=== PATIENT | male | born 1960 | race Caucasian/White ===

== ENCOUNTER 2023-04-21 20:10 | Inpatient (IN) ==
--- NOTE | 2023-04-21 20:38 | EKG ---
Test Reason : Shortness of Breath Blood Pressure : */* mmHG Vent. Rate : 105 BPM Atrial Rate : 105 BPM P-R Int : 140 ms QRS Dur : 90 ms QT Int : 312 ms P-R-T Axes : 80 -23 67 degrees QTc Int : 412 ms Sinus tachycardia Otherwise normal ECG No previous ECGs available Confirmed by Elpidio Zeng ([id number]) on 04/23/2023 7:48:55 AM Referred By: Confirmed By: Elpidio Zeng
[2023-04-21 20:47] LABS: ABG ALLEN TEST POS; ABG BASE EXCESS 2.4 mmol/L (-2.0-2.0); ABG HCO3 26.4 mmol/L (22-26)
[2023-04-21 20:47] LABS: BASOPHILS # (AUTO) 0.1 X10^3/uL (0.0-0.1); BASOPHILS % (AUTO) 0.6 % (0.2-1.0); EOSINOPHILS % (AUTO) 0.2 % (0.9-2.9); HEMATOCRIT 48.6 % (42.0-54.0); HEMOGLOBIN 16.4 g/dL (13.5-18.0); LYMPHOCYTES # (AUTO) 1.7 X10^3/uL (1.3-2.9); LYMPHOCYTES % (AUTO) 16.1 % (21.0-51.0); MEAN CORPUSCULAR HEMOGLOBIN 32.1 pg (27.0-34.0); MEAN CORPUSCULAR HGB CONC 33.8 g/dL (33.0-35.0); MEAN PLATELET VOLUME 7.7 fL (7.4-11.0); MONOCYTES # (AUTO) 1.6 x10^3/uL (0.3-0.8); MONOCYTES % (AUTO) 14.7 % (0.0-13.0); NEUTROPHILS # (AUTO) 7.4 x10^3/uL (2.2-4.8); NEUTROPHILS % (AUTO) 68.4 % (42.0-75.0); PLATELET COUNT 201 X10^3/uL (150.0-450.0); RED BLOOD COUNT 5.11 X10^6/uL (4.7-6.0); WHITE BLOOD COUNT 10.8 X10^3/uL (3.6-10.0)
--- NOTE | 2023-04-21 20:58 | RAD ---
EXAM:CHEST, 1 VIEWHISTORY:Patient stated that he has been sick since 04/16/23, Patient stated that he started having increased Shortness of breath and chest pain that started this morning. ; Shortness of BreathCOMPARISON:None.TECHNIQUE:A single frontal view of the chest was obtained.FINDINGS:There are multiple EKG leads and wires seen overlying the patient. The heart is normal in size. There is no focal infiltrate. There is no effusion. There is no pneumothorax. The osseous structures are intact.IMPRESSION:No focal infiltrate or effusion.THIS IS AN ELECTRONICALLY VERIFIED FINAL [id number]/21/2023 8:55 PM - Electronically signed by Susan Kim MD
[2023-04-21 21:01] LABS: ALANINE AMINOTRANSFERASE 28 Units/L (12-78); ALBUMIN 3.9 g/dL (3.4-5.0); ALKALINE PHOSPHATASE 65 Units/L (46-116); ASPARTATE AMINO TRANSFERASE 23 Units/L (15-37); BLOOD UREA NITROGEN 27 mg/dL (7-18); CALCIUM 8.4 mg/dL (8.5-10.1); CARBON DIOXIDE 29.4 mmol/L (21-32); CHLORIDE 98 mmol/L (98-107); COR NA(FOR HYPERGLY) 136 mmol/L (136-145); CREATININE 1.23 mg/dL (0.70-1.30); GLUCOSE 117 mg/dL (65-99); SODIUM 136 mmol/L (136-145); TOTAL PROTEIN 7.9 g/dL (6.4-8.2); eGFR NON BLACK RACES > 60 (>60)
[2023-04-21] MEDS ORDERED: SOLU-Medrol 125 MG VIAL IVP ONE (21:27)
[2023-04-21] MEDS ORDERED: DUONEB 0.5 MG/3 MG (3 mL) NEB ONE ×2 (21:28→21:30)
--- NOTE | 2023-04-21 21:36 | DR.SOBA ---
HPI Time Seen Time Seen by Provider: 04/21/23 21:27 Primary Care Physician Primary Care Physician: Elizabeth Godwin HPI Comment HPI Comment: According to pt he was exposed to RSV last week .He began experiencing shortenss of breath increased cough and shortness of breath that has slowly worsend.pt also experienced chest pain which he thinks could be due to cough.EMS called .was started on oxygen and brought him to Er for evaluation Complaints Chief Complaint Doctors Comments: shortness of breath Chief Complaint:: Patient arrived via [facility]. Patient stated that he has been sick since 04/16/23, Patient stated that he started having increased Shortness of breath and chest pain that started this morning. COVID-19 Coronavirus risk:travel/contact w/high risk person: No Has patient experienced Coronavirus symptoms: No Coronavirus symptoms experienced: Coughing and Shortness of Breath Reviewed Nurses Notes Reviewed: Yes Source History Provided: Patient and EMS Mode of Arrival Mode of Arrival: EMS Timing Onset of Chief Complaint: 04/21/23 Duration Duration: Days Context Onset:: With Light Exertion PE Risk Factors:: None History of:: COPD Currently on:: Inhaled Bronchodilators Prehospital Care:: O2 Modifying Factors Worsens:: Exertion Improves:: Nothing Associated Signs and Symptoms Associated Signs and Symptoms: Cough, Nasal Congestion and Chest Pain If Chest Pain Quality: Sharp Location: Chest Wall If Cough Cough: Nonproductive Other History Other History: has been exposed to RSV PMH PMH Past Medical History: Yes Past Medical History: COPD and Hypertension Past Medical History Comment: Emphysema Past Surgical History: Yes Surgical History: Appendectomy Family History History of Family Medical Conditions: Yes Family Medical History: [place] and Coronary Artery Disease Social History Does patient currently use any type of tobacco product: Yes Have you used tobacco products in the last 12 months: Yes Type of Tobacco Use: Cigarettes Does any household member use tobacco: No Alcohol Use: None Do you use any recreational Drugs:: No Lives With: Alone Lives Where: Home Travel Risk Coronavirus risk:travel/contact w/high risk person: No Has patient experienced Coronavirus symptoms: No Coronavirus symptoms experienced: Coughing and Shortness of Breath Infectious screening In the last 2 months have you had wt loss of >10#?: NO Have you had fever, night sweats or hemotysis?: No Have you traveled outside the country in the last 6 months?: No Isolation: Standard ROS Review of Systems Constitutional: Chills, Malaise and Fatigue Eyes: No Symptoms Reported ENTM: No Symptoms Reported Respiratoy: Non-Productive Cough and Short of Breath Cardiovascular: Chest Pain Gastrointestinal/Abdominal: No Symptoms Reported Genitourinary: No Symptoms Reported Neurological: No Symptoms Reported Musculoskeletal: No Symptoms Reported Integumentary: No Symptoms Reported Hematologic/Lymphatic: No Symptoms Reported PE Vital Signs Vitals: Vital Signs Temperature 98.3 F Pulse Rate 96 Pulse Rate 108 Respiratory Rate 25 Blood Pressure 138/83 O2 Sat by Pulse Oximetry 96 O2 Sat by Pulse Oximetry 99 General Limitations: No Limitations General Appearance: Alert, Anxious and In Distress Head Head Exam: Normal Inspection and Atraumatic Eyes Eye exam: Normal Appearance, PERRL and EOMI ENT ENT Exam: Normal Oropharynx and Mucous Membranes Moist Neck Neck Exam: Normal Inspection and Full ROM Chest Chest Inspection: Normal Inspection and Symmetric Chest Wall Rise Respiratory Respiratory Exam: Prolonged Expiratory Phase Respiratory Exam: Bilateral: Wheezing Cardiovascular Cardiovascular Exam: Tachycardia, +S1 and +S2 Abdominal Exam Abdominal Exam: Normal Inspection, Normal Bowel Sounds and Soft Extremities Extremities Exam: Normal Inspection Neurologic Neurological Exam: Alert Skin Skin Exam: Normal Color MDM Differential Diagnosis Differential Diagnosis: COPD, Mycardial Infarction, Pneumonia and URI COURSE Treatment Treatment: labs,CXR ,oxygen ,duoneb ,solumerol.resp panel Reevaluation 1st: Unchanged ROR Labs Reviewed Laboratory Results Reviewed?: Yes 04/21/23 20:30 04/21/23 20:30 Laboratory: WBC 10.8 X10^3/uL (3.6-10.0) H 04/21/23 20:30 RBC 5.11 X10^6/uL (4.7-6.0) 04/21/23 20:30 Hgb 16.4 g/dL (13.5-18.0) 04/21/23 20:30 Hct 48.6 % (42.0-54.0) 04/21/23 20:30 MCV 95.0 fL (80.0-100.0) 04/21/23 20:30 MCH 32.1 pg (27.0-34.0) 04/21/23 20:30 MCHC 33.8 g/dL (33.0-35.0) 04/21/23 20:30 RDW 13.0 % (11.6-16.5) 04/21/23 20:30 Plt Count 201 X10^3/uL (150.0-450.0) 04/21/23 20:30 MPV 7.7 fL (7.4-11.0) 04/21/23 20:30 Neut % (Auto) 68.4 % (42.0-75.0) 04/21/23 20:30 Lymph % (Auto) 16.1 % (21.0-51.0) L 04/21/23 20:30 [place] % (Auto) 14.7 % (0.0-13.0) H 04/21/23 20:30 Eos % (Auto) 0.2 % (0.9-2.9) L 04/21/23 20:30 Baso % (Auto) 0.6 % (0.2-1.0) 04/21/23 20:30 Neut # (Auto) 7.4 x10^3/uL (2.2-4.8) H 04/21/23 20:30 Lymph # (Auto) 1.7 X10^3/uL (1.3-2.9) 04/21/23 20:30 [place] # (Auto) 1.6 x10^3/uL (0.3-0.8) H 04/21/23 20:30 Eos # (Auto) 0.0 x10^3/uL (0.0-0.2) 04/21/23 20:30 Baso # (Auto) 0.1 X10^3/uL (0.0-0.1) 04/21/23 20:30 Absolute Nucleated RBC 0.1 /100WBC 04/21/23 20:30 Sample Site Rr 04/21/23 20:42 ABG pH 7.450 (7.35-7.45) 04/21/23 20:42 ABG pCO2 38.0 mmHg (35.0-45.0) 04/21/23 20:42 ABG pO2 63.0 mmHg (80.0-100.0) L 04/21/23 20:42 ABG HCO3 26.4 mmol/L (22-26) H 04/21/23 20:42 ABG O2 Saturation 93.0 % (90-100) 04/21/23 20:42 ABG Base Excess 2.4 mmol/L (-2.0-2.0) H 04/21/23 20:42 [place] Test Pos 04/21/23 20:42 A-a Gradient 39.0 mmHg 04/21/23 20:42 FiO2 21.0 04/21/23 20:42 Blood Gas Comments Jairon well ae 04/21/23 20:42 Sodium 136 mmol/L (136-145) 04/21/23 20:30 Corrected Sodium 136 mmol/L (136-145) 04/21/23 20:30 Potassium 4.0 mmol/L (3.5-5.1) 04/21/23 20:30 Chloride 98 mmol/L (98-107) 04/21/23 20:30 Carbon Dioxide 29.4 mmol/L (21-32) 04/21/23 20:30 BUN 27 mg/dL (7-18) H 04/21/23 20:30 Creatinine 1.23 mg/dL (0.70-1.30) 04/21/23 20:30 Est GFR (MDRD) Af Amer > 60 (>60) 04/21/23 20:30 Est GFR (MDRD) Non-Af > 60 (>60) 04/21/23 20:30 Glucose 117 mg/dL (65-99) H 04/21/23 20:30 Calcium 8.4 mg/dL (8.5-10.1) L 04/21/23 20:30 Corrected Calcium TNP 04/21/23 20:30 Total Bilirubin 0.50 mg/dL (0.2-1.0) 04/21/23 20:30 AST 23 Units/L (15-37) 04/21/23 20:30 ALT 28 Units/L (12-78) 04/21/23 20:30 Alkaline Phosphatase 65 Units/L (46-116) 04/21/23 20:30 Creatine Kinase 282 Units/L (39-308) 04/21/23 20:30 Troponin I High Sens 4.8 ng/L (4.0-60.0) 04/21/23 20:30 B-Natriuretic Peptide 7.6 pg/mL (0-79) 04/21/23 20:30 Total Protein 7.9 g/dL (6.4-8.2) 04/21/23 20:30 Albumin 3.9 g/dL (3.4-5.0) 04/21/23 20:30 Globulin 4.0 g/dL (2.5-4.5) 04/21/23 20:30 Albumin/Globulin Ratio 1.0 Ratio (1.1-2.1) L 04/21/23 20:30 SARS-CoV-2 (PCR) Negative (NEGATIVE) 04/21/23 20:20 Influenza Type A (PCR) Negative (NEGATIVE) 04/21/23 20:20 Influenza Type B (PCR) Negative (NEGATIVE) 04/21/23 20:20 RSV (PCR) Positive (NEGATIVE) A 04/21/23 20:20 Opioid Opioid Risk Tool Age (Karson box if 16-45): No History of Preadolescent Sexual Abuse: No Total: 0 Total Score Risk Category: Low Risk Copyright: Zander QUINTANILLA predicting aberrant behaviors Discharge Plan Diagnosis Discharge Problem: RSV (respiratory syncytial virus infection), Acute exacerbation of chronic obstructive pulmonary disease, Dyspnea Discharge Plan Patient Disposition: 09 ADMITTED INPATIENT Condition: Stable Prescriptions: No Action Albuterol Sulfate [Proair Hfa] 108 MCG/ACT Aer 1 Inhalation NEEDED atorvastatin 40 mg tablet 40 mg PO QDAY benazepril 5 mg tablet 5 mg PO QDAY tizanidine 4 mg tablet 4 mg PO BID meloxicam 15 mg tablet 15 mg PO QDAY clopidogrel 75 mg tablet 75 mg PO QDAY alprazolam 0.5 mg tablet 0.5 mg PO BID PRN dicyclomine 20 mg tablet 20 mg PO QID temazepam 30 mg capsule 30 mg PO QPM PRN omeprazole 20 mg capsule,delayed release(DR/EC) 20 mg PO BID acetaminophen-codeine 300-60 mg tablet 1 tab PO QID PRN azithromycin 500 mg tablet 500 mg PO QDAY Health Concerns: Post Hospitalization: new medications and changes needed to prevent readmission or further decline. Pt educated and given instructions on all concerns. Plan of Treatment: Continue with present treatment and follow up plan. Pt is to keep follow up appointment as instructed and take medications as ordered. Orders to Discharge Patient Discharge Orders: Transfer (Routine); Ordered 04/21/23 Ordered By: Sarath Mark Follow ups/Referrals Follow ups/Referrals: SINGH GODWIN [Primary Care Provider] - 3 days
[2023-04-21] MEDS ORDERED: SOLU-Medrol 125 MG VIAL ONE (21:46)
[2023-04-22] MEDS ORDERED: DUONEB 0.5 MG/3 MG (3 mL) NEB SCH ×2 (06:00→09:00)
[2023-04-22] MEDS ORDERED: PULMICORT NEB TX 0.5 MG NEB SCH (09:00)
[2023-04-22] MEDS ORDERED: BENAZEPRIL 5 MG PO SCH (09:00)
[2023-04-22] MEDS: SOLU-Medrol 40 MG VIAL IVP SCH ×2 (09:13→20:15)
[2023-04-22] MEDS: PLAVIX PO SCH (09:13)
[2023-04-22] MEDS: LOTENSIN TAB 10 MG PO SCH (09:13)
[2023-04-22] MEDS: ROBITUSSIN DM PO PRN (09:13)
[2023-04-22] MEDS: LIPITOR TAB 40 MG PO SCH (09:14)
[2023-04-22] MEDS: DUONEB 0.5 MG/3 MG (3 mL) NEB SCH ×4 (09:21→20:50)
[2023-04-22] MEDS: PULMICORT NEB TX 0.5 MG NEB SCH ×2 (09:21→20:51)
[2023-04-22] MEDS: ROCEPHIN VIAL 1 GRAM 1 G in NS 100 ML IV 100 ML IV SCH (10:00)
[2023-04-22] MEDS: MOBIC TAB 15 MG PO SCH (10:02)
[2023-04-22] MEDS: XANAX PO PRN ×2 (10:02→20:14)
[2023-04-22] MEDS: PriLOSEC PO SCH ×2 (10:02→20:15)
[2023-04-22] MEDS: ZANAFLEX PO SCH ×2 (10:03→20:15)
[2023-04-22] MEDS: TUSSIONEX PENNKINETIC SUSP PO SCH ×2 (10:03→21:22)
[2023-04-22] MEDS: TYLENOL #3 TAB (W/CODEINE) PO PRN (10:07)
[2023-04-22] MEDS: BENTYL CAP 10 MG PO SCH ×3 (13:19→20:14)
--- NOTE | 2023-04-22 16:56 | DR.H&P ---
H&P History & Physical for Day of: H&P Date: 04/22/23 Chief Complaint Chief Complaint: Shortness of breath Allergies Allergies Allergy/AdvReac Type Severity Reaction Status Date / Time No Known Allergies Allergy Verified 04/21/23 20:33 History of Present Illness History of Present Illness: This is a pleasant 62-year-old white male well-known to me. The patient kept falling last night because he kept getting very short of breath and giving out completely. He fell 3 times last night because it gave completely out. Because of this, he called EMS, and they came to pick him up and brought him to the hospital. He tested positive for RSV, and subsequently, they admitted him to the hospital. He was hypoxic, and once they put him on oxygen his O2 sat came up in the upper 90s. He had been around family members who had been sick with RSV and he has been sick for the last couple of days according to what he said. His symptoms came on very fast and rapidly pr ogressed over the last 48 hours. Past Medical History Past Medical History: COPD and Hypertension Past Surgical History Surgical History: Appendectomy Family History Family Medical History: Diabetes Mellitus, Cancer and [place] Social History Does patient currently use any type of tobacco product: Yes Have you used tobacco products in the last 12 months: Yes Type of Tobacco Use: Cigarettes Does any household member use tobacco: No Alcohol Use: None Drug Use: None Medications Home Medications: Home Medications Medication Instructions Recorded Confirmed Type acetaminophen 300 mg-codeine 60 mg 1 tab PO QID PRN 04/21/23 04/21/23 History tablet alprazolam 0.5 mg tablet 0.5 mg PO BID PRN 04/21/23 04/21/23 History atorvastatin 40 mg tablet 40 mg PO QDAY 04/21/23 04/21/23 History azithromycin 500 mg tablet 500 mg PO QDAY 04/21/23 04/21/23 History benazepril 5 mg tablet 5 mg PO QDAY 04/21/23 04/21/23 History clopidogrel 75 mg tablet 75 mg PO QDAY 04/21/23 04/21/23 History dicyclomine 20 mg tablet 20 mg PO QID 04/21/23 04/21/23 History meloxicam 15 mg tablet 15 mg PO QDAY 04/21/23 04/21/23 History omeprazole 20 mg capsule,delayed 20 mg PO BID 04/21/23 04/21/23 History release temazepam 30 mg capsule 30 mg PO QPM PRN 04/21/23 04/21/23 History tizanidine 4 mg tablet 4 mg PO BID 04/21/23 04/21/23 History Labs 04/21/23 20:30 04/21/23 20:30 Labs: Laboratory WBC 10.8 X10^3/uL (3.6-10.0) H 04/21/23 20:30 RBC 5.11 X10^6/uL (4.7-6.0) 04/21/23 20:30 Hgb 16.4 g/dL (13.5-18.0) 04/21/23 20:30 Hct 48.6 % (42.0-54.0) 04/21/23 20:30 MCV 95.0 fL (80.0-100.0) 04/21/23 20:30 MCH 32.1 pg (27.0-34.0) 04/21/23 20: MCHC 33.8 g/dL (33.0-35.0) 04/21/23 20:30 RDW 13.0 % (11.6-16.5) 04/21/23 20:30 Plt Count 201 X10^3/uL (150.0-450.0) 04/21/23 20:30 MPV 7.7 fL (7.4-11.0) 04/21/23 20:30 Neut % (Auto) 68.4 % (42.0-75.0) 04/21/23 20: Lymph % (Auto) 16.1 % (21.0-51.0) L 04/21/23 20:30 [place] % (Auto) 14.7 % (0.0-13.0) H 04/21/23 20:30 Eos % (Auto) 0.2 % (0.9-2.9) L 04/21/23 20:30 Baso % (Auto) 0.6 % (0.2-1.0) 04/21/23 20:30 Neut # (Auto) 7.4 x10^3/uL (2.2-4.8) H 04/21/23 20:30 Lymph # (Auto) 1.7 X10^3/uL (1.3-2.9) 04/21/23 20:30 [place] # (Auto) 1.6 x10^3/uL (0.3-0.8) H 04/21/23 20:30 Eos # (Auto) 0.0 x10^3/uL (0.0-0.2) 04/21/23 20:30 Baso # (Auto) 0.1 X10^3/uL (0.0-0.1) 04/21/23 20:30 Absolute Nucleated RBC 0.1 /100WBC 04/21/23 20:30 Sample Site Rr 04/21/23 20:42 ABG pH 7.450 (7.35-7.45) 04/21/23 20:42 ABG pCO2 38.0 mmHg (35.0-45.0) 04/21/23 20:42 ABG pO2 63.0 mmHg (80.0-100.0) L 04/21/23 20:42 ABG HCO3 26.4 mmol/L (22-26) H 04/21/23 20:42 ABG O2 Saturation 93.0 % (90-100) 04/21/23 20:42 ABG Base Excess 2.4 mmol/L (-2.0-2.0) H 04/21/23 20:42 Ky Test Pos 04/21/23 20:42 A-a Gradient 39.0 mmHg 04/21/23 20:42 FiO2 21.0 04/21/23 20:42 Blood Gas Comments Jairon well ae 04/21/23 20:42 Sodium 136 mmol/L (136-145) 04/21/23 20:30 Corrected Sodium 136 mmol/L (136-145) 04/21/23 20:30 Potassium 4.0 mmol/L (3.5-5.1) 04/21/23 20:30 Chloride 98 mmol/L (98-107) 04/21/23 20:30 Carbon Dioxide 29.4 mmol/L (21-32) 04/21/23 20:30 BUN 27 mg/dL (7-18) H 04/21/23 20:30 Creatinine 1.23 mg/dL (0.70-1.30) 04/21/23 20:30 Est GFR (MDRD) Af Amer > 60 (>60) 04/21/23 20:30 Est GFR (MDRD) Non-Af > 60 (>60) 04/21/23 20:30 Glucose 117 mg/dL (65-99) H 04/21/23 20:30 Calcium 8.4 mg/dL (8.5-10.1) L 04/21/23 20:30 Corrected Calcium TNP 04/21/23 20:30 Total Bilirubin 0.50 mg/dL (0.2-1.0) 04/21/23 20:30 AST 23 Units/L (15-37) 04/21/23 20:30 ALT 28 Units/L (12-78) 04/21/23 20:30 Alkaline Phosphatase 65 Units/L (46-116) 04/21/23 20:30 Creatine Kinase 282 Units/L (39-308) 04/21/23 20:30 Troponin I High Sens 4.8 ng/L (4.0-60.0) 04/21/23 20:30 B-Natriuretic Peptide 7.6 pg/mL (0-79) 04/21/23 20:30 Total Protein 7.9 g/dL (6.4-8.2) 04/21/23 20:30 Albumin 3.9 g/dL (3.4-5.0) 04/21/23 20:30 Globulin 4.0 g/dL (2.5-4.5) 04/21/23 20:30 Albumin/Globulin Ratio 1.0 Ratio (1.1-2.1) L 04/21/23 20:30 SARS-CoV-2 (PCR) Negative (NEGATIVE) 04/21/23 20:20 Influenza Type A (PCR) Negative (NEGATIVE) 04/21/23 20:20 Influenza Type B (PCR) Negative (NEGATIVE) 04/21/23 20:20 RSV (PCR) Positive (NEGATIVE) A 04/21/23 20:20 Review of Systems Constitutional: Chills, Sweats, Weakness and Malaise Eyes: No Symptoms Reported ENT: Nose Discharge Respiratory: Cough, Shortness of Breath and Sputum Cardiovascular: No Symptoms Reported Gastrointestinal: No Symptoms Reported Genitourinary: No Symptoms Reported Musculoskeletal: Back Pain Skin: No Symptoms Reported Neurological: Weakness Physical Exam Vital Signs: Vital Signs Temperature 97.6 F Temperature 97.9 F Pulse Rate [Left Radial] 77 Pulse Rate [Left Radial] 90 Pulse Rate 75 Respiratory Rate 20 Respiratory Rate 18 Respiratory Rate 22 Respiratory Rate 22 Blood Pressure [Left Arm] 129/59 Blood Pressure [Left Arm] 137/75 O2 Sat by Pulse Oximetry 95 O2 Sat by Pulse Oximetry 96 O2 Sat by Pulse Oximetry 95 Oriented: Normal, Time, Person and Place Eyes: Normal Ear: Normal Nose: Injected and Discharge Throat: Normal Respiratory: Diminished Throughout and Rhonchi Throughout Cardiovascular: Normal : Normal Auscultation: Bowel Sounds: Normal Palpation: Normal Tenderness: Normal Skin: Normal Musculoskeletal: Normal Psychiatric: Normal Mood Description: Labile Affect: Normal Speech Pattern: Clear and Appropriate Assessment/Plan (1) COPD (chronic obstructive pulmonary disease): Qualifiers: COPD type: unspecified COPD Qualified Code(s): J44.9 - Chronic obstructive pulmonary disease, unspecified Status: Acute Plan: DuoNebs, IV Solu-Medrol, Rocephin (2) Bronchitis: Status: Acute (3) Chest pain: Qualifiers: Chest pain type: unspecified Qualified Code(s): R07.9 - Chest pain, unspecified Status: Acute (4) RSV (respiratory syncytial virus infection): Status: Acute Plan: Obvious Solu-Medrol, DuoNebs (5) Acute exacerbation of chronic obstructive pulmonary disease: Status: Acute (6) Dyspnea: Status: Acute (7) Hypertension: Status: Acute Review H&P Reviewed: Yes Patient was examined?: Yes
--- NOTE | 2023-04-23 05:09 | RAD ---
HISTORYrsv infection, copd exacerbation copdSTUDYCHEST, 1 [id number]/11/2023FINDINGSThe trachea is midline. The cardiac silhouette is unremarkable. The lungs are clear without focal infiltrate or effusion. The bony thorax is unremarkable.IMPRESSIONNo acute cardiopulmonary findings .Electronically signed by: Galen Andrade (Apr 23, 2023 05:05:23)
[2023-04-23 06:06] LABS: BASOPHILS % (AUTO) 0.1 % (0.2-1.0); HEMATOCRIT 44.9 % (42.0-54.0); HEMOGLOBIN 15.1 g/dL (13.5-18.0); LYMPHOCYTES # (AUTO) 1.4 X10^3/uL (1.3-2.9); LYMPHOCYTES % (AUTO) 7.7 % (21.0-51.0); MEAN CORPUSCULAR HEMOGLOBIN 32.1 pg (27.0-34.0); MEAN CORPUSCULAR HGB CONC 33.6 g/dL (33.0-35.0); MEAN CORPUSCULAR VOLUME 95.5 fL (80.0-100.0); MONOCYTES # (AUTO) 0.8 x10^3/uL (0.3-0.8); MONOCYTES % (AUTO) 4.1 % (0.0-13.0); NEUTROPHILS # (AUTO) 16.3 x10^3/uL (2.2-4.8); NEUTROPHILS % (AUTO) 88.1 % (42.0-75.0); PLATELET COUNT 188 X10^3/uL (150.0-450.0); RED CELL DISTRIBUTION WIDTH 12.9 % (11.6-16.5); WHITE BLOOD COUNT 18.6 X10^3/uL (3.6-10.0)
[2023-04-23 06:09] LABS: ALANINE AMINOTRANSFERASE 24 Units/L (12-78); ALBUMIN 3.3 g/dL (3.4-5.0); ALKALINE PHOSPHATASE 56 Units/L (46-116); ASPARTATE AMINO TRANSFERASE 18 Units/L (15-37); BLOOD UREA NITROGEN 26 mg/dL (7-18); CALCIUM 8.4 mg/dL (8.5-10.1); CARBON DIOXIDE 26.7 mmol/L (21-32); CHLORIDE 99 mmol/L (98-107); COR NA(FOR HYPERGLY) 137 mmol/L (136-145); CREATININE 1.11 mg/dL (0.70-1.30); GLUCOSE 192 mg/dL (65-99); MAGNESIUM 2.1 mg/dL (2.0-2.9); POTASSIUM 4.1 mmol/L (3.5-5.1); SODIUM 135 mmol/L (136-145); TOTAL PROTEIN 7.1 g/dL (6.4-8.2); eGFR NON BLACK RACES > 60 (>60)
[2023-04-23] MEDS: PULMICORT NEB TX 0.5 MG NEB SCH ×2 (09:16→21:00)
[2023-04-23] MEDS: DUONEB 0.5 MG/3 MG (3 mL) NEB SCH ×4 (09:16→21:00)
[2023-04-23] MEDS: TUSSIONEX PENNKINETIC SUSP PO SCH ×2 (09:53→21:05)
[2023-04-23] MEDS: SOLU-Medrol 40 MG VIAL IVP SCH ×2 (09:53→20:31)
[2023-04-23] MEDS: ZANAFLEX PO SCH ×2 (09:53→20:31)
[2023-04-23] MEDS: ROCEPHIN VIAL 1 GRAM 1 G in NS 100 ML IV 100 ML IV SCH (09:53)
[2023-04-23] MEDS: PriLOSEC PO SCH ×2 (09:54→20:30)
[2023-04-23] MEDS: PLAVIX PO SCH (09:54)
[2023-04-23] MEDS: BENTYL CAP 10 MG PO SCH ×4 (09:54→20:31)
[2023-04-23] MEDS: MOBIC TAB 15 MG PO SCH (09:54)
[2023-04-23] MEDS: LOTENSIN TAB 10 MG PO SCH (09:54)
[2023-04-23] MEDS: LIPITOR TAB 40 MG PO SCH (10:53)
[2023-04-23] MEDS ORDERED: ZITHROMAX INJ 500 MG VIAL 500 MG in NS 250 ML IV 250 ML IV SCH (12:00)
[2023-04-23] MEDS: FLONASE NASAL SPRAY ENOSTRIL SCH (13:11)
--- NOTE | 2023-04-23 18:07 | PCM.PROG ---
Progress Note Progress Note for Day of Date of Exam: 04/23/23 Subjective Subjective: The patient is feeling a little bit better this morning. He reports having less dyspnea. His white blood cell count spiked up to 18,000. I suspect part of this is the IV Solu-Medrol he is receiving. I will go ahead and add azithromycin 500 mg daily to the Rocephin he is receiving as well. We will continue the current treatment and recheck his routine labs tomorrow morning and if he is doing well we may go ahead and discharge him. Past Medical Family Social History Allergies: Allergies No Known Allergies Allergy (Verified 04/21/23 20:33) Review of Systems ROS: No change since H&P Vital Signs and I&O's Vital Signs: Vital Signs Temperature 97.2 F Temperature 98.2 F Pulse Rate [Left Radial] 82 Pulse Rate [Left Radial] 76 Respiratory Rate 20 Respiratory Rate 20 Blood Pressure [Left Arm] 136/72 Blood Pressure [Left Arm] 146/64 Blood Pressure [Right Arm] 126/58 Blood Pressure [Right Arm] 126/58 O2 Sat by Pulse Oximetry 95 O2 Sat by Pulse Oximetry 96 Intake and Output: Intake & Output 04/21/23 04/22/23 04/23/23 04/24/23 11:59 11:59 11:59 11:59 Intake Total 40 / 40 1700 / 1700 960 / 960 Balance 40 / 40 1700 / 1700 960 / 960 Physical Exam Oriented: Normal, Time, Person and Place Eyes: Normal Ear: Normal Nose: Injected and Discharge Throat: Normal Respiratory: Generalized and Diminished Cardiovascular: Normal : Normal Auscultation: Bowel Sounds: Normal Tenderness: Normal Skin: Normal Musculoskeletal: Normal Psychiatric: Normal Mood Description: Labile Affect: Normal Speech Pattern: Clear and Appropriate Laboratory and Diagnostics 04/23/23 05:13 04/23/23 05:13 Labs: Laboratory WBC 18.6 X10^3/uL (3.6-10.0) H 04/23/23 05:13 RBC 4.70 X10^6/uL (4.7-6.0) 04/23/23 05:13 Hgb 15.1 g/dL (13.5-18.0) 04/23/23 05:13 Hct 44.9 % (42.0-54.0) 04/23/23 05:13 MCV 95.5 fL (80.0-100.0) 04/23/23 05:13 MCH 32.1 pg (27.0-34.0) 04/23/23 05:13 MCHC 33.6 g/dL (33.0-35.0) 04/23/23 05:13 RDW 12.9 % (11.6-16.5) 04/23/23 05:13 Plt Count 188 X10^3/uL (150.0-450.0) 04/23/23 05:13 MPV 8.0 fL (7.4-11.0) 04/23/23 05:13 Neut % (Auto) 88.1 % (42.0-75.0) H 04/23/23 05:13 Lymph % (Auto) 7.7 % (21.0-51.0) L 04/23/23 05:13 [place] % (Auto) 4.1 % (0.0-13.0) 04/23/23 05:13 Eos % (Auto) 0.0 % (0.9-2.9) L 04/23/23 05:13 Baso % (Auto) 0.1 % (0.2-1.0) L 04/23/23 05:13 Neut # (Auto) 16.3 x10^3/uL (2.2-4.8) H 04/23/23 05:13 Lymph # (Auto) 1.4 X10^3/uL (1.3-2.9) 04/23/23 05:13 [place] # (Auto) 0.8 x10^3/uL (0.3-0.8) 04/23/23 05:13 Eos # (Auto) 0.0 x10^3/uL (0.0-0.2) 04/23/23 05:13 Baso # (Auto) 0.0 X10^3/uL (0.0-0.1) 04/23/23 05:13 Absolute Nucleated RBC 0.0 /100WBC 04/23/23 05:13 Sample Site Rr 04/21/23 20:42 ABG pH 7.450 (7.35-7.45) 04/21/23 20:42 ABG pCO2 38.0 mmHg (35.0-45.0) 04/21/23 20:42 ABG pO2 63.0 mmHg (80.0-100.0) L 04/21/23 20:42 ABG HCO3 26.4 mmol/L (22-26) H 04/21/23 20:42 ABG O2 Saturation 93.0 % (90-100) 04/21/23 20:42 ABG Base Excess 2.4 mmol/L (-2.0-2.0) H 04/21/23 20:42 [place] Test Pos 04/21/23 20:42 A-a Gradient 39.0 mmHg 04/21/23 20:42 FiO2 21.0 04/21/23 20:42 Blood Gas Comments Jairon well ae 04/21/23 20:42 Sodium 135 mmol/L (136-145) L 04/23/23 05:13 Corrected Sodium 137 mmol/L (136-145) 04/23/23 05:13 Potassium 4.1 mmol/L (3.5-5.1) 04/23/23 05:13 Chloride 99 mmol/L (98-107) 04/23/23 05:13 Carbon Dioxide 26.7 mmol/L (21-32) 04/23/23 05:13 BUN 26 mg/dL (7-18) H 04/23/23 05:13 Creatinine 1.11 mg/dL (0.70-1.30) 04/23/23 05:13 Est GFR (MDRD) Af Amer > 60 (>60) 04/23/23 05:13 Est GFR (MDRD) Non-Af > 60 (>60) 04/23/23 05:13 Glucose 192 mg/dL (65-99) H 04/23/23 05:13 Calcium 8.4 mg/dL (8.5-10.1) L 04/23/23 05:13 Corrected Calcium 9.0 mg/dL (8.5-10.1) 04/23/23 05:13 Magnesium 2.1 mg/dL (2.0-2.9) 04/23/23 05:13 Total Bilirubin 0.30 mg/dL (0.2-1.0) 04/23/23 05:13 AST 18 Units/L (15-37) 04/23/23 05:13 ALT 24 Units/L (12-78) 04/23/23 05:13 Alkaline Phosphatase 56 Units/L (46-116) 04/23/23 05:13 Creatine Kinase 282 Units/L (39-308) 04/21/23 20:30 Troponin I High Sens 4.8 ng/L (4.0-60.0) 04/21/23 20:30 B-Natriuretic Peptide 7.6 pg/mL (0-79) 04/21/23 20:30 Total Protein 7.1 g/dL (6.4-8.2) 04/23/23 05:13 Albumin 3.3 g/dL (3.4-5.0) L 04/23/23 05:13 Globulin 3.8 g/dL (2.5-4.5) 04/23/23 05:13 Albumin/Globulin Ratio 0.9 Ratio (1.1-2.1) L 04/23/23 05:13 SARS-CoV-2 (PCR) Negative (NEGATIVE) 04/21/23 20:20 Influenza Type A (PCR) Negative (NEGATIVE) 04/21/23 20:20 Influenza Type B (PCR) Negative (NEGATIVE) 04/21/23 20:20 RSV (PCR) Positive (NEGATIVE) A 04/21/23 20:20 Plan (1) COPD (chronic obstructive pulmonary disease): Status: Acute Qualifiers: COPD type: unspecified COPD Qualified Code(s): J44.9 - Chronic obstructive pulmonary disease, unspecified Plan: DuoNebs, IV Solu-Medrol, Rocephin, Add IV azithromycin. (2) Bronchitis: Status: Acute (3) Chest pain: Status: Acute Qualifiers: Chest pain type: unspecified Qualified Code(s): R07.9 - Chest pain, unspecified Narrative Support Text: I suspect the chest pain is related to his RSV infection, and the coughing he has been doing. (4) RSV (respiratory syncytial virus infection): Status: Acute Plan: Obvious Solu-Medrol, DuoNebs (5) Acute exacerbation of chronic obstructive pulmonary disease: Status: Acute (6) Dyspnea: Status: Acute (7) Hypertension: Status: Acute
[2023-04-23] MEDS: RESTORIL CAP 15 MG PO PRN (20:38)
[2023-04-23] MEDS: XANAX PO PRN (20:39)
[2023-04-24 05:57] LABS: BASOPHILS % (AUTO) 0.1 % (0.2-1.0); HEMATOCRIT 44.5 % (42.0-54.0); HEMOGLOBIN 14.9 g/dL (13.5-18.0); LYMPHOCYTES # (AUTO) 1.4 X10^3/uL (1.3-2.9); LYMPHOCYTES % (AUTO) 7.2 % (21.0-51.0); MEAN CORPUSCULAR HEMOGLOBIN 31.9 pg (27.0-34.0); MEAN CORPUSCULAR HGB CONC 33.5 g/dL (33.0-35.0); MEAN CORPUSCULAR VOLUME 95.2 fL (80.0-100.0); MEAN PLATELET VOLUME 7.6 fL (7.4-11.0); MONOCYTES # (AUTO) 0.8 x10^3/uL (0.3-0.8); NEUTROPHILS # (AUTO) 17.6 x10^3/uL (2.2-4.8); NEUTROPHILS % (AUTO) 88.7 % (42.0-75.0); PLATELET COUNT 221 X10^3/uL (150.0-450.0); RED BLOOD COUNT 4.67 X10^6/uL (4.7-6.0); RED CELL DISTRIBUTION WIDTH 13.1 % (11.6-16.5); WHITE BLOOD COUNT 19.9 X10^3/uL (3.6-10.0)
[2023-04-24 06:14] LABS: ALANINE AMINOTRANSFERASE 25 Units/L (12-78); ALBUMIN 3.2 g/dL (3.4-5.0); ALKALINE PHOSPHATASE 52 Units/L (46-116); ASPARTATE AMINO TRANSFERASE 14 Units/L (15-37); BLOOD UREA NITROGEN 27 mg/dL (7-18); CALCIUM 8.4 mg/dL (8.5-10.1); CHLORIDE 101 mmol/L (98-107); COR NA(FOR HYPERGLY) 138 mmol/L (136-145); CREATININE 1.08 mg/dL (0.70-1.30); GLUCOSE 184 mg/dL (65-99); SODIUM 136 mmol/L (136-145); eGFR NON BLACK RACES > 60 (>60)
[2023-04-24] MEDS ORDERED: ZOFRAN INJ 4 MG VIAL IVP PRN (08:27)
[2023-04-24] MEDS: DUONEB 0.5 MG/3 MG (3 mL) NEB SCH ×4 (08:59→21:00)
[2023-04-24] MEDS: PULMICORT NEB TX 0.5 MG NEB SCH ×2 (08:59→21:00)
[2023-04-24] MEDS: SOLU-Medrol 40 MG VIAL IVP SCH ×2 (09:01→20:55)
[2023-04-24] MEDS: BENTYL CAP 10 MG PO SCH ×4 (09:01→20:54)
[2023-04-24] MEDS: LIPITOR TAB 40 MG PO SCH (09:01)
[2023-04-24] MEDS: PriLOSEC PO SCH ×2 (09:01→20:54)
[2023-04-24] MEDS: ZANAFLEX PO SCH ×2 (09:02→20:54)
[2023-04-24] MEDS: MOBIC TAB 15 MG PO SCH (09:02)
[2023-04-24] MEDS: PLAVIX PO SCH (09:02)
[2023-04-24] MEDS: LOTENSIN TAB 10 MG PO SCH (09:02)
[2023-04-24] MEDS: MUCINEX EXPECTORANT PO SCH ×2 (09:03→20:54)
[2023-04-24] MEDS: ROCEPHIN VIAL 1 GRAM 1 G in NS 100 ML IV 100 ML IV SCH (09:03)
[2023-04-24] MEDS: LOVENOX INJ 40 MG SYR SC SCH (09:03)
[2023-04-24] MEDS: FLONASE NASAL SPRAY ENOSTRIL SCH (09:52)
[2023-04-24] MEDS: TUSSIONEX PENNKINETIC SUSP PO SCH ×2 (10:34→21:27)
[2023-04-24] MEDS: XANAX PO PRN ×2 (10:35→20:54)
[2023-04-24] MEDS: LEVAQUIN PREMIX IV 750 MG 750 MG/150 ML BAG IV SCH (10:42)
--- NOTE | 2023-04-24 12:35 | PCM.PROG ---
Progress Note Progress Note for Day of Date of Exam: 04/24/23 Subjective Subjective: The patient is feeling a little bit worse this morning as his dyspnea is getting worse as well. His white blood cell count has gone up some since yesterday. We will discontinue his azithromycin and Rocephin. We will start him on IV Levaquin today. His AIT respiratory panel has grown out Streptococcus pneumoniae as well as RSV. We will also add Mucinex as he is complaining about thick phlegm that he is coughing up. We will continue the DuoNebs and also consult respiratory to start working with him to see what they can do to help him breathe easier. Past Medical Family Social History Allergies: Allergies No Known Allergies Allergy (Verified 04/21/23 20:33) Review of Systems ROS: No change since H&P Vital Signs and I&O's Vital Signs: Vital Signs Temperature 97.9 F Pulse Rate [Left Radial] 66 Pulse Rate 80 Respiratory Rate 25 Respiratory Rate 22 Respiratory Rate 20 Blood Pressure [Left Arm] 129/65 O2 Sat by Pulse Oximetry 94 O2 Sat by Pulse Oximetry 95 Intake and Output: Intake & Output 04/22/23 04/23/23 04/24/23 04/25/23 11:59 11:59 11:59 11:59 Intake Total 40 / 40 1700 / 1700 1820 / 1820 Balance 40 / 40 1700 / 1700 1820 / 1820 Physical Exam Oriented: Normal, Time, Person and Place Eyes: Normal Ear: Normal Nose: Injected and Discharge Throat: Normal Respiratory: Generalized and Diminished Cardiovascular: Normal : Normal Auscultation: Bowel Sounds: Normal Tenderness: Normal Skin: Normal Musculoskeletal: Normal Psychiatric: Normal Mood Description: Labile Affect: Normal Speech Pattern: Clear and Appropriate Laboratory and Diagnostics 04/24/23 05:32 04/24/23 05:32 Labs: Laboratory WBC 19.9 X10^3/uL (3.6-10.0) H 04/24/23 05:32 RBC 4.67 X10^6/uL (4.7-6.0) L 04/24/23 05:32 Hgb 14.9 g/dL (13.5-18.0) 04/24/23 05:32 Hct 44.5 % (42.0-54.0) 04/24/23 05:32 MCV 95.2 fL (80.0-100.0) 04/24/23 05:32 MCH 31.9 pg (27.0-34.0) 04/24/23 05:32 MCHC 33.5 g/dL (33.0-35.0) 04/24/23 05:32 RDW 13.1 % (11.6-16.5) 04/24/23 05:32 Plt Count 221 X10^3/uL (150.0-450.0) 04/24/23 05:32 MPV 7.6 fL (7.4-11.0) 04/24/23 05:32 Neut % (Auto) 88.7 % (42.0-75.0) H 04/24/23 05:32 Lymph % (Auto) 7.2 % (21.0-51.0) L 04/24/23 05:32 [place] % (Auto) 4.0 % (0.0-13.0) 04/24/23 05:32 Eos % (Auto) 0.0 % (0.9-2.9) L 04/24/23 05:32 Baso % (Auto) 0.1 % (0.2-1.0) L 04/24/23 05:32 Neut # (Auto) 17.6 x10^3/uL (2.2-4.8) H 04/24/23 05:32 Lymph # (Auto) 1.4 X10^3/uL (1.3-2.9) 04/24/23 05:32 [place] # (Auto) 0.8 x10^3/uL (0.3-0.8) 04/24/23 05:32 Eos # (Auto) 0.0 x10^3/uL (0.0-0.2) 04/24/23 05:32 Baso # (Auto) 0.0 X10^3/uL (0.0-0.1) 04/24/23 05:32 Absolute Nucleated RBC 0.0 /100WBC 04/24/23 05:32 Sample Site Rr 04/21/23 20:42 ABG pH 7.450 (7.35-7.45) 04/21/23 20:42 ABG pCO2 38.0 mmHg (35.0-45.0) 04/21/23 20:42 ABG pO2 63.0 mmHg (80.0-100.0) L 04/21/23 20:42 ABG HCO3 26.4 mmol/L (22-26) H 04/21/23 20:42 ABG O2 Saturation 93.0 % (90-100) 04/21/23 20:42 ABG Base Excess 2.4 mmol/L (-2.0-2.0) H 04/21/23 20:42 Ky Test Pos 04/21/23 20:42 A-a Gradient 39.0 mmHg 04/21/23 20:42 FiO2 21.0 04/21/23 20:42 Blood Gas Comments Jairon well ae 04/21/23 20:42 Sodium 136 mmol/L (136-145) 04/24/23 05:32 Corrected Sodium 138 mmol/L (136-145) 04/24/23 05:32 Potassium 5.0 mmol/L (3.5-5.1) 04/24/23 05:32 Chloride 101 mmol/L (98-107) 04/24/23 05:32 Carbon Dioxide 28.0 mmol/L (21-32) 04/24/23 05:32 BUN 27 mg/dL (7-18) H 04/24/23 05:32 Creatinine 1.08 mg/dL (0.70-1.30) 04/24/23 05:32 Est GFR (MDRD) Af Amer > 60 (>60) 04/24/23 05:32 Est GFR (MDRD) Non-Af > 60 (>60) 04/24/23 05:32 Glucose 184 mg/dL (65-99) H 04/24/23 05:32 Calcium 8.4 mg/dL (8.5-10.1) L 04/24/23 05:32 Corrected Calcium 9.0 mg/dL (8.5-10.1) 04/24/23 05:32 Magnesium 2.1 mg/dL (2.0-2.9) 04/23/23 05:13 Total Bilirubin 0.30 mg/dL (0.2-1.0) 04/24/23 05:32 AST 14 Units/L (15-37) L 04/24/23 05:32 ALT 25 Units/L (12-78) 04/24/23 05:32 Alkaline Phosphatase 52 Units/L (46-116) 04/24/23 05:32 Creatine Kinase 282 Units/L (39-308) 04/21/23 20:30 Troponin I High Sens 4.8 ng/L (4.0-60.0) 04/21/23 20:30 B-Natriuretic Peptide 7.6 pg/mL (0-79) 04/21/23 20:30 Total Protein 7.0 g/dL (6.4-8.2) 04/24/23 05:32 Albumin 3.2 g/dL (3.4-5.0) L 04/24/23 05:32 Globulin 3.8 g/dL (2.5-4.5) 04/24/23 05:32 Albumin/Globulin Ratio 0.8 Ratio (1.1-2.1) L 04/24/23 05:32 SARS-CoV-2 (PCR) Negative (NEGATIVE) 04/21/23 20:20 Influenza Type A (PCR) Negative (NEGATIVE) 04/21/23 20:20 Influenza Type B (PCR) Negative (NEGATIVE) 04/21/23 20:20 RSV (PCR) Positive (NEGATIVE) A 04/21/23 20:20 Resp Viral Panel (PCR) See scanned report 04/21/23 23:55 Plan (1) COPD (chronic obstructive pulmonary disease): Status: Acute Qualifiers: COPD type: unspecified COPD Qualified Code(s): J44.9 - Chronic obstr uctive pulmonary disease, unspecified Plan: DuoNebs, IV Solu-Medrol, Rocephin, Add IV azithromycin. (2) Bronchitis: Status: Acute (3) Chest pain: Status: Acute Qualifiers: Chest pain type: unspecified Qualified Code(s): R07.9 - Chest pain, unspecified (4) RSV (respiratory syncytial virus infection): Status: Acute Plan: Obvious Solu-Medrol, DuoNebs (5) Acute exacerbation of chronic obstructive pulmonary disease: Status: Acute (6) Dyspnea: Status: Acute Plan: Add Mucinex. Consult respiratory therapy. (7) Hypertension: Status: Acute (8) Acute bronchitis due to Streptococcus pneumoniae: Status: Acute Plan: Discontinue IV Rocephin and azithromycin. Start IV Levaquin.
[2023-04-24] MEDS: RESTORIL CAP 15 MG PO PRN (20:53)
[2023-04-25 06:05] LABS: BASOPHILS % (AUTO) 0.1 % (0.2-1.0); HEMATOCRIT 43.8 % (42.0-54.0); HEMOGLOBIN 14.4 g/dL (13.5-18.0); LYMPHOCYTES # (AUTO) 1.3 X10^3/uL (1.3-2.9); LYMPHOCYTES % (AUTO) 9.6 % (21.0-51.0); MEAN CORPUSCULAR HEMOGLOBIN 31.7 pg (27.0-34.0); MEAN CORPUSCULAR HGB CONC 32.9 g/dL (33.0-35.0); MEAN CORPUSCULAR VOLUME 96.5 fL (80.0-100.0); MEAN PLATELET VOLUME 7.7 fL (7.4-11.0); MONOCYTES # (AUTO) 0.6 x10^3/uL (0.3-0.8); MONOCYTES % (AUTO) 4.4 % (0.0-13.0); NEUTROPHILS # (AUTO) 11.6 x10^3/uL (2.2-4.8); NEUTROPHILS % (AUTO) 85.9 % (42.0-75.0); PLATELET COUNT 216 X10^3/uL (150.0-450.0); RED BLOOD COUNT 4.54 X10^6/uL (4.7-6.0); WHITE BLOOD COUNT 13.5 X10^3/uL (3.6-10.0)
[2023-04-25 06:17] LABS: ALANINE AMINOTRANSFERASE 25 Units/L (12-78); ALKALINE PHOSPHATASE 56 Units/L (46-116); ASPARTATE AMINO TRANSFERASE 13 Units/L (15-37); BLOOD UREA NITROGEN 25 mg/dL (7-18); CALCIUM 8.2 mg/dL (8.5-10.1); CARBON DIOXIDE 31.7 mmol/L (21-32); CHLORIDE 99 mmol/L (98-107); COR NA(FOR HYPERGLY) 140 mmol/L (136-145); CREATININE 1.06 mg/dL (0.70-1.30); GLUCOSE 221 mg/dL (65-99); POTASSIUM 4.8 mmol/L (3.5-5.1); SODIUM 137 mmol/L (136-145); TOTAL PROTEIN 6.5 g/dL (6.4-8.2); eGFR NON BLACK RACES > 60 (>60)
[2023-04-25] MEDS: BENTYL CAP 10 MG PO SCH ×4 (09:30→20:29)
[2023-04-25] MEDS: SOLU-Medrol 40 MG VIAL IVP SCH ×2 (09:31→20:30)
[2023-04-25] MEDS: LOVENOX INJ 40 MG SYR SC SCH (09:31)
[2023-04-25] MEDS: LOTENSIN TAB 10 MG PO SCH (09:31)
[2023-04-25] MEDS: MOBIC TAB 15 MG PO SCH (09:32)
[2023-04-25] MEDS: ZANAFLEX PO SCH ×2 (09:32→20:30)
[2023-04-25] MEDS: PLAVIX PO SCH (09:32)
[2023-04-25] MEDS: LIPITOR TAB 40 MG PO SCH (09:33)
[2023-04-25] MEDS: PriLOSEC PO SCH ×2 (09:33→20:29)
[2023-04-25] MEDS: MUCINEX EXPECTORANT PO SCH ×2 (09:34→20:30)
[2023-04-25] MEDS: PULMICORT NEB TX 0.5 MG NEB SCH ×2 (09:44→20:05)
[2023-04-25] MEDS: DUONEB 0.5 MG/3 MG (3 mL) NEB SCH ×4 (09:44→20:05)
[2023-04-25] MEDS: LEVAQUIN PREMIX IV 750 MG 750 MG/150 ML BAG IV SCH (10:15)
[2023-04-25] MEDS: FLONASE NASAL SPRAY ENOSTRIL SCH (10:16)
[2023-04-25] MEDS: TUSSIONEX PENNKINETIC SUSP PO SCH ×2 (10:22→21:00)
[2023-04-25] MEDS: RESTORIL CAP 15 MG PO PRN (20:29)
[2023-04-25] MEDS: XANAX PO PRN (20:32)
--- NOTE | 2023-04-26 08:00 | PCM.PROG ---
Progress Note Progress Note for Day of Date of Exam: 04/25/23 Subjective Subjective: The patient is feeling better today with improved dyspnea. His white count is down to around 13,000. We will plan on keeping 1-2 more days and of looking discharging him. No changes today. Past Medical Family Social History Allergies: Allergies No Known Allergies Allergy (Verified 04/21/23 20:33) Review of Systems ROS: No change since H&P Vital Signs and I&O's Vital Signs: Vital Signs Temperature 98.2 F Pulse Rate [Left Radial] 60 Respiratory Rate 20 Blood Pressure [Left Arm] 133/65 O2 Sat by Pulse Oximetry 93 Intake and Output: Intake & Output 04/23/23 04/24/23 04/25/23 04/26/23 11:59 11:59 11:59 11:59 Intake Total 1700 / 1700 1820 / 1820 2588 / 2588 1795 / 1795 Output Total 1700 / 1700 500 / 500 Balance 1700 / 1700 1820 / 1820 888 / 888 1295 / 1295 Physical Exam Oriented: Normal, Time, Person and Place Eyes: Normal Ear: Normal Nose: Injected and Discharge Throat: Normal Respiratory: Generalized and Rhonchi Cardiovascular: Normal : Normal Auscultation: Bowel Sounds: Normal Tenderness: Normal Skin: Normal Musculoskeletal: Normal Psychiatric: Normal Mood Description: Labile Affect: Normal Speech Pattern: Clear and Appropriate Laboratory and Diagnostics 04/25/23 05:22 04/25/23 05:22 Labs: Laboratory WBC 13.5 X10^3/uL (3.6-10.0) H 04/25/23 05:22 RBC 4.54 X10^6/uL (4.7-6.0) L 04/25/23 05:22 Hgb 14.4 g/dL (13.5-18.0) 04/25/23 05:22 Hct 43.8 % (42.0-54.0) 04/25/23 05:22 MCV 96.5 fL (80.0-100.0) 04/25/23 05:22 MCH 31.7 pg (27.0-34.0) 04/25/23 05:22 MCHC 32.9 g/dL (33.0-35.0) L 04/25/23 05:22 RDW 13.0 % (11.6-16.5) 04/25/23 05:22 Plt Count 216 X10^3/uL (150.0-450.0) 04/25/23 05:22 MPV 7.7 fL (7.4-11.0) 04/25/23 05:22 Neut % (Auto) 85.9 % (42.0-75.0) H 04/25/23 05:22 Lymph % (Auto) 9.6 % (21.0-51.0) L 04/25/23 05:22 [place] % (Auto) 4.4 % (0.0-13.0) 04/25/23 05:22 Eos % (Auto) 0.0 % (0.9-2.9) L 04/25/23 05:22 Baso % (Auto) 0.1 % (0.2-1.0) L 04/25/23 05:22 Neut # (Auto) 11.6 x10^3/uL (2.2-4.8) H 04/25/23 05:22 Lymph # (Auto) 1.3 X10^3/uL (1.3-2.9) 04/25/23 05:22 [place] # (Auto) 0.6 x10^3/uL (0.3-0.8) 04/25/23 05:22 Eos # (Auto) 0.0 x10^3/uL (0.0-0.2) 04/25/23 05:22 Baso # (Auto) 0.0 X10^3/uL (0.0-0.1) 04/25/23 05:22 Absolute Nucleated RBC 0.0 /100WBC 04/25/23 05:22 Sample Site Rr 04/21/23 20:42 ABG pH 7.450 (7.35-7.45) 04/21/23 20:42 ABG pCO2 38.0 mmHg (35.0-45.0) 04/21/23 20:42 ABG pO2 63.0 mmHg (80.0-100.0) L 04/21/23 20:42 ABG HCO3 26.4 mmol/L (22-26) H 04/21/23 20:42 ABG O2 Saturation 93.0 % (90-100) 04/21/23 20:42 ABG Base Excess 2.4 mmol/L (-2.0-2.0) H 04/21/23 20:42 [place] Test Pos 04/21/23 20:42 A-a Gradient 39.0 mmHg 04/21/23 20:42 FiO2 21.0 04/21/23 20:42 Blood Gas Comments Jairon well ae 04/21/23 20:42 Sodium 137 mmol/L (136-145) 04/25/23 05:22 Corrected Sodium 140 mmol/L (136-145) 04/25/23 05:22 Potassium 4.8 mmol/L (3.5-5.1) 04/25/23 05:22 Chloride 99 mmol/L (98-107) 04/25/23 05:22 Carbon Dioxide 31.7 mmol/L (21-32) 04/25/23 05:22 BUN 25 mg/dL (7-18) H 04/25/23 05:22 Creatinine 1.06 mg/dL (0.70-1.30) 04/25/23 05:22 Est GFR (MDRD) Af Amer > 60 (>60) 04/25/23 05:22 Est GFR (MDRD) Non-Af > 60 (>60) 04/25/23 05:22 Glucose 221 mg/dL (65-99) H 04/25/23 05:22 Calcium 8.2 mg/dL (8.5-10.1) L 04/25/23 05:22 Corrected Calcium 9.0 mg/dL (8.5-10.1) 04/25/23 05:22 Magnesium 2.1 mg/dL (2.0-2.9) 04/23/23 05:13 Total Bilirubin 0.40 mg/dL (0.2-1.0) 04/25/23 05:22 AST 13 Units/L (15-37) L 04/25/23 05:22 ALT 25 Units/L (12-78) 04/25/23 05:22 Alkaline Phosphatase 56 Units/L (46-116) 04/25/23 05:22 Creatine Kinase 282 Units/L (39-308) 04/21/23 20:30 Troponin I High Sens 4.8 ng/L (4.0-60.0) 04/21/23 20:30 B-Natriuretic Peptide 7.6 pg/mL (0-79) 04/21/23 20:30 Total Protein 6.5 g/dL (6.4-8.2) 04/25/23 05:22 Albumin 3.0 g/dL (3.4-5.0) L 04/25/23 05:22 Globulin 3.5 g/dL (2.5-4.5) 04/25/23 05:22 Albumin/Globulin Ratio 0.9 Ratio (1.1-2.1) L 04/25/23 05:22 SARS-CoV-2 (PCR) Negative (NEGATIVE) 04/21/23 20:20 Influenza Type A (PCR) Negative (NEGATIVE) 04/21/23 20:20 Influenza Type B (PCR) Negative (NEGATIVE) 04/21/23 20:20 RSV (PCR) Positive (NEGATIVE) A 04/21/23 20:20 Resp Viral Panel (PCR) See scanned report 04/21/23 23:55 Plan (1) COPD (chronic obstructive pulmonary disease): Status: Acute Qualifiers: COPD type: unspecified COPD Qualified Code(s): J44.9 - Chronic obst ructive pulmonary disease, unspecified Plan: DuoNebs, IV Solu-Medrol, Rocephin, Add IV azithromycin. (2) Bronchitis: Status: Acute (3) Chest pain: Status: Acute Qualifiers: Chest pain type: unspecified Qualified Code(s): R07.9 - Chest pain, unspecified (4) RSV (respiratory syncytial virus infection): Status: Acute Plan: Obvious Solu-Medrol, DuoNebs (5) Acute exacerbation of chronic obstructive pulmonary disease: Status: Acute (6) Dyspnea: Status: Acute Plan: Add Mucinex. Consult respiratory therapy. (7) Hypertension: Status: Acute (8) Acute bronchitis due to Streptococcus pneumoniae: Status: Acute Plan: Discontinue IV Rocephin and azithromycin. Start IV Levaquin.
--- NOTE | 2023-04-26 08:03 | RAD ---
EXAM:Portable chestHISTORY:PneumoniaCOMPARISON: 023FINDINGS:Heart size is normal. Mindy are normal. Aorta is calcified. Lung villa are clear. No pleural effusions are identified. Bony thorax is unremarkable.IMPRESSION:No significant abnormality identifiedTHIS IS AN ELECTRONICALLY VERIFIED FINAL [id number]/26/2023 8:00 AM - Electronically signed by Presley Monterroso MD
[2023-04-26] MEDS: PULMICORT NEB TX 0.5 MG NEB SCH ×2 (08:34→20:55)
[2023-04-26] MEDS: DUONEB 0.5 MG/3 MG (3 mL) NEB SCH ×2 (08:34→20:55)
[2023-04-26] MEDS: LOVENOX INJ 40 MG SYR SC SCH (09:19)
[2023-04-26] MEDS: MOBIC TAB 15 MG PO SCH (09:19)
[2023-04-26] MEDS: PLAVIX PO SCH (09:20)
[2023-04-26] MEDS: LOTENSIN TAB 10 MG PO SCH (09:20)
[2023-04-26] MEDS: PriLOSEC PO SCH ×2 (09:21→22:03)
[2023-04-26] MEDS: BENTYL CAP 10 MG PO SCH ×4 (09:21→22:02)
[2023-04-26] MEDS: ZANAFLEX PO SCH ×2 (09:22→22:03)
[2023-04-26] MEDS ORDERED: BROVANA ONE (09:22)
[2023-04-26] MEDS: MUCINEX EXPECTORANT PO SCH ×2 (09:23→22:04)
[2023-04-26] MEDS: LIPITOR TAB 40 MG PO SCH (09:23)
[2023-04-26] MEDS: SOLU-Medrol 40 MG VIAL IVP SCH ×2 (09:24→22:04)
[2023-04-26] MEDS: TUSSIONEX PENNKINETIC SUSP PO SCH ×2 (09:24→22:02)
[2023-04-26] MEDS: BROVANA IN SCH ×2 (09:44→20:55)
[2023-04-26] MEDS: FLONASE NASAL SPRAY ENOSTRIL SCH (09:49)
[2023-04-26] MEDS: LEVAQUIN PREMIX IV 750 MG 750 MG/150 ML BAG IV SCH (09:50)
--- NOTE | 2023-04-26 16:23 | PCM.PROG ---
Progress Note Progress Note for Day of Date of Exam: 04/26/23 Subjective Subjective: The patient is feeling better today with improved dyspnea. He is still somewhat tired and has expiratory wheezing. I will go ahead and add inhaled budesonide with formoterol as well. We will continue the rest of his treatments today. We do not have labs on him this morning but we will draw him again tomorrow morning and a chest x-ray. Past Medical Family Social History Allergies: Allergies No Known Allergies Allergy (Verified 04/21/23 20:33) Review of Systems ROS: No change since H&P Vital Signs and I&O's Vital Signs: Vital Signs Temperature 98.6 F Pulse Rate [Left Radial] 73 Pulse Rate 77 Pulse Rate 85 Respiratory Rate 20 Blood Pressure [Left Arm] 168/75 O2 Sat by Pulse Oximetry 93 O2 Sat by Pulse Oximetry 95 O2 Sat by Pulse Oximetry 95 Intake and Output: Intake & Output 04/24/23 04/25/23 04/26/23 04/27/23 11:59 11:59 11:59 11:59 Intake Total 1820 / 1820 2588 / 2588 1795 / 1795 1240 / 1240 Output Total 1700 / 1700 500 / 500 300 / 300 Balance 1820 / 1820 888 / 888 1295 / 1295 940 / 940 Physical Exam Oriented: Normal, Time, Person and Place Eyes: Normal Ear: Normal Nose: Injected and Discharge Throat: Normal Respiratory: Generalized, Wheezes and Rhonchi Cardiovascular: Normal : Normal Auscultation: Bowel Sounds: Normal Tenderness: Normal Skin: Normal Musculoskeletal: Normal Psychiatric: Normal Mood Description: Labile Affect: Normal Speech Pattern: Clear and Appropriate Laboratory and Diagnostics 04/25/23 05:22 04/25/23 05:22 Labs: Laboratory WBC 13.5 X10^3/uL (3.6-10.0) H 04/25/23 05:22 RBC 4.54 X10^6/uL (4.7-6.0) L 04/25/23 05:22 Hgb 14.4 g/dL (13.5-18.0) 04/25/23 05:22 Hct 43.8 % (42.0-54.0) 04/25/23 05:22 MCV 96.5 fL (80.0-100.0) 04/25/23 05:22 MCH 31.7 pg (27.0-34.0) 04/25/23 05:22 MCHC 32.9 g/dL (33.0-35.0) L 04/25/23 05:22 RDW 13.0 % (11.6-16.5) 04/25/23 05:22 Plt Count 216 X10^3/uL (150.0-450.0) 04/25/23 05:22 MPV 7.7 fL (7.4-11.0) 04/25/23 05:22 Neut % (Auto) 85.9 % (42.0-75.0) H 04/25/23 05:22 Lymph % (Auto) 9.6 % (21.0-51.0) L 04/25/23 05:22 [place] % (Auto) 4.4 % (0.0-13.0) 04/25/23 05:22 Eos % (Auto) 0.0 % (0.9-2.9) L 04/25/23 05:22 Baso % (Auto) 0.1 % (0.2-1.0) L 04/25/23 05:22 Neut # (Auto) 11.6 x10^3/uL (2.2-4.8) H 04/25/23 05:22 Lymph # (Auto) 1.3 X10^3/uL (1.3-2.9) 04/25/23 05:22 [place] # (Auto) 0.6 x10^3/uL (0.3-0.8) 04/25/23 05:22 Eos # (Auto) 0.0 x10^3/uL (0.0-0.2) 04/25/23 05:22 Baso # (Auto) 0.0 X10^3/uL (0.0-0.1) 04/25/23 05:22 Absolute Nucleated RBC 0.0 /100WBC 04/25/23 05:22 Sample Site Rr 04/21/23 20:42 ABG pH 7.450 (7.35-7.45) 04/21/23 20:42 ABG pCO2 38.0 mmHg (35.0-45.0) 04/21/23 20:42 ABG pO2 63.0 mmHg (80.0-100.0) L 04/21/23 20:42 ABG HCO3 26.4 mmol/L (22-26) H 04/21/23 20:42 ABG O2 Saturation 93.0 % (90-100) 04/21/23 20:42 ABG Base Excess 2.4 mmol/L (-2.0-2.0) H 04/21/23 20:42 Ky Test Pos 04/21/23 20:42 A-a Gradient 39.0 mmHg 04/21/23 20:42 FiO2 21.0 04/21/23 20:42 Blood Gas Comments Jairon well ae 04/21/23 20:42 Sodium 137 mmol/L (136-145) 04/25/23 05:22 Corrected Sodium 140 mmol/L (136-145) 04/25/23 05:22 Potassium 4.8 mmol/L (3.5-5.1) 04/25/23 05:22 Chloride 99 mmol/L (98-107) 04/25/23 05:22 Carbon Dioxide 31.7 mmol/L (21-32) 04/25/23 05:22 BUN 25 mg/dL (7-18) H 04/25/23 05:22 Creatinine 1.06 mg/dL (0.70-1.30) 04/25/23 05:22 Est GFR (MDRD) Af Amer > 60 (>60) 04/25/23 05:22 Est GFR (MDRD) Non-Af > 60 (>60) 04/25/23 05:22 Glucose 221 mg/dL (65-99) H 04/25/23 05:22 Calcium 8.2 mg/dL (8.5-10.1) L 04/25/23 05:22 Corrected Calcium 9.0 mg/dL (8.5-10.1) 04/25/23 05:22 Magnesium 2.1 mg/dL (2.0-2.9) 04/23/23 05:13 Total Bilirubin 0.40 mg/dL (0.2-1.0) 04/25/23 05:22 AST 13 Units/L (15-37) L 04/25/23 05:22 ALT 25 Units/L (12-78) 04/25/23 05:22 Alkaline Phosphatase 56 Units/L (46-116) 04/25/23 05:22 Creatine Kinase 282 Units/L (39-308) 04/21/23 20:30 Troponin I High Sens 4.8 ng/L (4.0-60.0) 04/21/23 20:30 B-Natriuretic Peptide 7.6 pg/mL (0-79) 04/21/23 20:30 Total Protein 6.5 g/dL (6.4-8.2) 04/25/23 05:22 Albumin 3.0 g/dL (3.4-5.0) L 04/25/23 05:22 Globulin 3.5 g/dL (2.5-4.5) 04/25/23 05:22 Albumin/Globulin Ratio 0.9 Ratio (1.1-2.1) L 04/25/23 05:22 SARS-CoV-2 (PCR) Negative (NEGATIVE) 04/21/23 20:20 Influenza Type A (PCR) Negative (NEGATIVE) 04/21/23 20:20 Influenza Type B (PCR) Negative (NEGATIVE) 04/21/23 20:20 RSV (PCR) Positive (NEGATIVE) A 04/21/23 20:20 Resp Viral Panel (PCR) See scanned report 04/21/23 23:55 Plan (1) COPD (chronic obstructive pulmonary disease): Status: Acute Qualifiers: COPD type: unspecified COPD Qualified Code(s): J44.9 - Chronic obstructive pulmonary disease, unspecified Plan: DuoNebs, IV Solu-Medrol, Rocephin, Add IV azithromycin. (2) Bronchitis: Status: Acute (3) Chest pain: Status: Acute Qualifiers: Chest pain type: unspecified Qualified Code(s): R07.9 - Chest pain, unspecified (4) RSV (respiratory syncytial virus infection): Status: Acute Plan: IV Solu-Medrol, DuoNebs, add inhaled budesonide and formoterol today. Continue IV Levaquin (5) Acute exacerbation of chronic obstructive pulmonary disease: Status: Acute (6) Dyspnea: Status: Acute Plan: Add Mucinex. Consult respiratory therapy. (7) Hypertension: Status: Acute (8) Acute bronchitis due to Streptococcus pneumoniae: Status: Acute Plan: Discontinue IV Rocephin and azithromycin. Start IV Levaquin.
[2023-04-26] MEDS ORDERED: PULMICORT NEB TX 0.5 MG NEB ONE (19:50)
[2023-04-26] MEDS: XANAX PO PRN (22:03)
[2023-04-26] MEDS: RESTORIL CAP 15 MG PO PRN (22:03)
--- NOTE | 2023-04-27 06:05 | RAD ---
EXAM:Portable chestHISTORY:RSV bronchitisCOMPARISON:04/26/2023FINDINGS: Heart size is normal. Mindy are normal. Lungs are free of acute infiltrates. There is minimal subsegmental atelectasis right lung base. No pleural effusions identified. Bony thorax is unremarkable.IMPRESSION:No acute infiltratesMinimal subsegmental atelectasis right lung baseTHIS IS AN ELECTRONICALLY VERIFIED FINAL [id number]/27/2023 6:02 AM - Electronically signed by Presley Monterroso MD
[2023-04-27 06:14] LABS: ALANINE AMINOTRANSFERASE 29 Units/L (12-78); ALBUMIN 2.8 g/dL (3.4-5.0); ALKALINE PHOSPHATASE 50 Units/L (46-116); ASPARTATE AMINO TRANSFERASE 13 Units/L (15-37); BLOOD UREA NITROGEN 27 mg/dL (7-18); CALCIUM 8.2 mg/dL (8.5-10.1); CARBON DIOXIDE 31.8 mmol/L (21-32); CHLORIDE 100 mmol/L (98-107); COR CA(FOR HYPOALB) 9.2 mg/dL (8.5-10.1); COR NA(FOR HYPERGLY) 139 mmol/L (136-145); GLUCOSE 202 mg/dL (65-99); MAGNESIUM 2.3 mg/dL (2.0-2.9); POTASSIUM 5.1 mmol/L (3.5-5.1); SODIUM 137 mmol/L (136-145); TOTAL PROTEIN 6.2 g/dL (6.4-8.2); eGFR NON BLACK RACES > 60 (>60)
[2023-04-27 06:15] LABS: LYMPHOCYTES # (AUTO) 1.5 X10^3/uL (1.3-2.9); LYMPHOCYTES % (AUTO) 11.3 % (21.0-51.0)
[2023-04-27 06:20] LABS: BASOPHILS % (AUTO) 0.2 % (0.2-1.0); HEMATOCRIT 45.3 % (42.0-54.0); HEMOGLOBIN 15.1 g/dL (13.5-18.0); MEAN CORPUSCULAR HEMOGLOBIN 31.9 pg (27.0-34.0); MEAN CORPUSCULAR HGB CONC 33.3 g/dL (33.0-35.0); MEAN CORPUSCULAR VOLUME 95.8 fL (80.0-100.0); MEAN PLATELET VOLUME 7.3 fL (7.4-11.0); MONOCYTES # (AUTO) 0.5 x10^3/uL (0.3-0.8); MONOCYTES % (AUTO) 3.5 % (0.0-13.0); NEUTROPHILS # (AUTO) 11.6 x10^3/uL (2.2-4.8); PLATELET COUNT 237 X10^3/uL (150.0-450.0); RED BLOOD COUNT 4.73 X10^6/uL (4.7-6.0); RED CELL DISTRIBUTION WIDTH 12.5 % (11.6-16.5); WHITE BLOOD COUNT 13.6 X10^3/uL (3.6-10.0)
[2023-04-27 07:25] LABS: BAND NEUTROPHILS % 3 % (0-10); BASOPHILS % (MANUAL) 0 % (0-1); PLATELET MORPHOLOGY COMMENT NORMAL (NORMAL)
[2023-04-27] MEDS: DUONEB 0.5 MG/3 MG (3 mL) NEB SCH ×4 (08:11→21:00)
[2023-04-27] MEDS: PULMICORT NEB TX 0.5 MG NEB SCH ×2 (08:11→21:00)
[2023-04-27] MEDS: BROVANA IN SCH ×2 (08:11→21:00)
[2023-04-27] MEDS: LOVENOX INJ 40 MG SYR SC SCH (08:49)
[2023-04-27] MEDS: BENTYL CAP 10 MG PO SCH ×4 (08:49→21:30)
[2023-04-27] MEDS: LEVAQUIN PREMIX IV 750 MG 750 MG/150 ML BAG IV SCH (08:49)
[2023-04-27] MEDS: LIPITOR TAB 40 MG PO SCH (08:49)
[2023-04-27] MEDS: FLONASE NASAL SPRAY ENOSTRIL SCH (08:49)
[2023-04-27] MEDS: LOTENSIN TAB 10 MG PO SCH (08:49)
[2023-04-27] MEDS: PLAVIX PO SCH (08:50)
[2023-04-27] MEDS: PriLOSEC PO SCH ×2 (08:50→21:31)
[2023-04-27] MEDS: MUCINEX EXPECTORANT PO SCH ×2 (08:50→21:39)
[2023-04-27] MEDS: MOBIC TAB 15 MG PO SCH (08:50)
[2023-04-27] MEDS: ZANAFLEX PO SCH ×2 (08:51→21:31)
[2023-04-27] MEDS: SOLU-Medrol 40 MG VIAL IVP SCH ×2 (08:51→21:30)
[2023-04-27] MEDS: TUSSIONEX PENNKINETIC SUSP PO SCH ×2 (10:00→21:29)
--- NOTE | 2023-04-27 13:53 | PCM.PROG ---
Progress Note Progress Note for Day of Date of Exam: 04/27/23 Subjective Subjective: The patient is feeling better today compared to yesterday. He has RSV bronchitis and history of COPD with exacerbation on this admission. He has increased air entry bilaterally this morning compared to yesterday. He is currently getting a breathing treatment and he tells me that he feels like he is slowly getting better. Yesterday afternoon he was coughing up copious amounts of yellow/green-colored phlegm and he feels like he is finally breaking loose where he is breathing easier. Yesterday we added inhaled budesonide along with formoterol and it seems to be making a difference so we will continue his current treatment with no changes. Continue pulmonary toiletry as well. This morning's chest x-ray shows that it is clear with no infiltrate. The patient's white blood cell count remains slightly elevated at 13,600. However, he is afebrile and his vital signs are stable. His O2 sat drops down in the low 90s at night but during the day in the upper 90s on 2 L nasal cannula. Repeat CBC, CMP, magnesium and portable chest x-ray again tomorrow morning. Hopefully the patient should be able to be discharged home within the next 1 to 2 days. Past Medical Family Social History Allergies: Allergies No Known Allergies Allergy (Verified 04/21/23 20:33) Review of Systems ROS: No change since H&P Vital Signs and I&O's Vital Signs: Vital Signs Temperature 97.8 F Temperature 98.0 F Pulse Rate [Right] 94 Pulse Rate [Right] 93 Respiratory Rate 22 Respiratory Rate 20 Blood Pressure [Left Arm] 123/71 Blood Pressure [Left Arm] 144/72 O2 Sat by Pulse Oximetry 97 O2 Sat by Pulse Oximetry 95 Intake and Output: Intake & Output 04/25/23 04/26/23 04/27/23 04/28/23 11:59 11:59 11:59 11:59 Intake Total 2588 / 2588 1795 / 1795 1798 / 1798 Output Total 1700 / 1700 500 / 500 300 / 300 Balance 888 / 888 1295 / 1295 1498 / 1498 Physical Exam Oriented: Normal, Time, Person and Place Eyes: Normal Ear: Normal Nose: Injected and Discharge Throat: Normal Respiratory: Generalized, Wheezes and Rhonchi Cardiovascular: Normal : Normal Auscultation: Bowel Sounds: Normal Tenderness: Normal Skin: Normal Musculoskeletal: Normal Psychiatric: Normal Mood Description: Labile Affect: Normal Speech Pattern: Clear and Appropriate Laboratory and Diagnostics 04/27/23 05:35 04/27/23 05:35 Labs: Laboratory WBC 13.6 X10^3/uL (3.6-10.0) H 04/27/23 05:35 RBC 4.73 X10^6/uL (4.7-6.0) 04/27/23 05:35 Hgb 15.1 g/dL (13.5-18.0) 04/27/23 05:35 Hct 45.3 % (42.0-54.0) 04/27/23 05:35 MCV 95.8 fL (80.0-100.0) 04/27/23 05:35 MCH 31.9 pg (27.0-34.0) 04/27/23 05:35 MCHC 33.3 g/dL (33.0-35.0) 04/27/23 05:35 RDW 12.5 % (11.6-16.5) 04/27/23 05:35 Plt Count 237 X10^3/uL (150.0-450.0) 04/27/23 05:35 Plt Count Comment Adequate (ADEQUATE) 04/27/23 05:35 MPV 7.3 fL (7.4-11.0) L 04/27/23 05:35 Neut % (Auto) 85.0 % (42.0-75.0) H 04/27/23 05:35 Lymph % (Auto) 11.3 % (21.0-51.0) L 04/27/23 05:35 [place] % (Auto) 3.5 % (0.0-13.0) 04/27/23 05:35 Eos % (Auto) 0.0 % (0.9-2.9) L 04/27/23 05:35 Baso % (Auto) 0.2 % (0.2-1.0) 04/27/23 05:35 Neut # (Auto) 11.6 x10^3/uL (2.2-4.8) H 04/27/23 05:35 Lymph # (Auto) 1.5 X10^3/uL (1.3-2.9) 04/27/23 05:35 [place] # (Auto) 0.5 x10^3/uL (0.3-0.8) 04/27/23 05:35 Eos # (Auto) 0.0 x10^3/uL (0.0-0.2) 04/27/23 05:35 Baso # (Auto) 0.0 X10^3/uL (0.0-0.1) 04/27/23 05:35 Absolute Nucleated RBC 0.1 /100WBC 04/27/23 05:35 Total Counted 100 04/27/23 05:35 Neutrophils % (Manual) 86 % (39-76) H 04/27/23 05:35 Band Neutrophils % 3 % (0-10) 04/27/23 05:35 Lymphocytes % (Manual) 9 % (13-43) L 04/27/23 05:35 Monocytes % (Manual) 2 % (4-9) L 04/27/23 05:35 Eosinophils % (Manual) 0 % (0-6) 04/27/23 05:35 Basophils % (Manual) 0 % (0-1) 04/27/23 05:35 Plt Morphology Comment Normal (NORMAL) 04/27/23 05:35 RBC Morphology Normal (NORMAL) 04/27/23 05:35 Sample Site Rr 04/21/23 20:42 ABG pH 7.450 (7.35-7.45) 04/21/23 20:42 ABG pCO2 38.0 mmHg (35.0-45.0) 04/21/23 20:42 ABG pO2 63.0 mmHg (80.0-100.0) L 04/21/23 20:42 ABG HCO3 26.4 mmol/L (22-26) H 04/21/23 20:42 ABG O2 Saturation 93.0 % (90-100) 04/21/23 20:42 ABG Base Excess 2.4 mmol/L (-2.0-2.0) H 04/21/23 20:42 Ky Test Pos 04/21/23 20:42 A-a Gradient 39.0 mmHg 04/21/23 20:42 FiO2 21.0 04/21/23 20:42 Blood Gas Comments Jairon well ae 04/21/23 20:42 Sodium 137 mmol/L (136-145) 04/27/23 05:35 Corrected Sodium 139 mmol/L (136-145) 04/27/23 05:35 Potassium 5.1 mmol/L (3.5-5.1) 04/27/23 05:35 Chloride 100 mmol/L (98-107) 04/27/23 05:35 Carbon Dioxide 31.8 mmol/L (21-32) 04/27/23 05:35 BUN 27 mg/dL (7-18) H 04/27/23 05:35 Creatinine 1.10 mg/dL (0.70-1.30) 04/27/23 05:35 Est GFR (MDRD) Af Amer > 60 (>60) 04/27/23 05:35 Est GFR (MDRD) Non-Af > 60 (>60) 04/27/23 05:35 Glucose 202 mg/dL (65-99) H 04/27/23 05:35 Calcium 8.2 mg/dL (8.5-10.1) L 04/27/23 05:35 Corrected Calcium 9.2 mg/dL (8.5-10.1) 04/27/23 05:35 Magnesium 2.3 mg/dL (2.0-2.9) 04/27/23 05:35 Total Bilirubin 0.50 mg/dL (0.2-1.0) 04/27/23 05:35 AST 13 Units/L (15-37) L 04/27/23 05:35 ALT 29 Units/L (12-78) 04/27/23 05:35 Alkaline Phosphatase 50 Units/L (46-116) 04/27/23 05:35 Creatine Kinase 282 Units/L (39-308) 04/21/23 20:30 Troponin I High Sens 4.8 ng/L (4.0-60.0) 04/21/23 20:30 B-Natriuretic Peptide 7.6 pg/mL (0-79) 04/21/23 20:30 Total Protein 6.2 g/dL (6.4-8.2) L 04/27/23 05:35 Albumin 2.8 g/dL (3.4-5.0) L 04/27/23 05:35 Globulin 3.4 g/dL (2.5-4.5) 04/27/23 05:35 Albumin/Globulin Ratio 0.8 Ratio (1.1-2.1) L 04/27/23 05:35 SARS-CoV-2 (PCR) Negative (NEGATIVE) 04/21/23 20:20 Influenza Type A (PCR) Negative (NEGATIVE) 04/21/23 20:20 Influenza Type B (PCR) Negative (NEGATIVE) 04/21/23 20:20 RSV (PCR) Positive (NEGATIVE) A 04/21/23 20:20 Resp Viral Panel (PCR) See scanned report 04/21/23 23:55 Radiology Reviewed: Yes Plan (1) COPD (chronic obstructive pulmonary disease): Status: Acute Qualifiers: COPD type: unspecified COPD Qualified Code(s): J44.9 - Chronic obstructive pulmonary disease, unspecified Plan: DuoNebs, IV Solu-Medrol, Rocephin, Add IV azithromycin. (2) Bronchitis: Status: Acute (3) Chest pain: Status: Acute Qualifiers: Chest pain type: unspecified Qualified Code(s): R07.9 - Chest pain, unspecified (4) RSV (respiratory syncytial virus infection): Status: Acute Plan: IV Solu-Medrol, DuoNebs, add inhaled budesonide and formoterol today. Continue IV Levaquin (5) Acute exacerbation of chronic obstructive pulmonary disease: Status: Acute (6) Dyspnea: Status: Acute Plan: Add Mucinex. Consult respiratory therapy. (7) Hypertension: Status: Acute (8) Acute bronchitis due to Streptococcus pneumoniae: Status: Acute Plan: Discontinue IV Rocephin and azithromycin. Start IV Levaquin.
[2023-04-27] MEDS: ROBITUSSIN DM PO PRN (21:31)
[2023-04-28 06:44] LABS: BASOPHILS % (AUTO) 0.2 % (0.2-1.0); EOSINOPHILS % (AUTO) 0.1 % (0.9-2.9); HEMATOCRIT 44.9 % (42.0-54.0); HEMOGLOBIN 15.2 g/dL (13.5-18.0); LYMPHOCYTES # (AUTO) 1.7 X10^3/uL (1.3-2.9); LYMPHOCYTES % (AUTO) 10.7 % (21.0-51.0); MEAN CORPUSCULAR HEMOGLOBIN 32.2 pg (27.0-34.0); MEAN CORPUSCULAR HGB CONC 33.8 g/dL (33.0-35.0); MEAN CORPUSCULAR VOLUME 95.1 fL (80.0-100.0); MEAN PLATELET VOLUME 7.5 fL (7.4-11.0); MONOCYTES # (AUTO) 0.9 x10^3/uL (0.3-0.8); MONOCYTES % (AUTO) 5.4 % (0.0-13.0); NEUTROPHILS # (AUTO) 13.6 x10^3/uL (2.2-4.8); NEUTROPHILS % (AUTO) 83.6 % (42.0-75.0); PLATELET COUNT 272 X10^3/uL (150.0-450.0); RED BLOOD COUNT 4.73 X10^6/uL (4.7-6.0); RED CELL DISTRIBUTION WIDTH 12.3 % (11.6-16.5); WHITE BLOOD COUNT 16.3 X10^3/uL (3.6-10.0)
[2023-04-28 06:49] LABS: ALANINE AMINOTRANSFERASE 39 Units/L (12-78); ALBUMIN 2.8 g/dL (3.4-5.0); ALKALINE PHOSPHATASE 47 Units/L (46-116); ASPARTATE AMINO TRANSFERASE 18 Units/L (15-37); BLOOD UREA NITROGEN 33 mg/dL (7-18); CALCIUM 7.9 mg/dL (8.5-10.1); CARBON DIOXIDE 30.2 mmol/L (21-32); CHLORIDE 99 mmol/L (98-107); COR CA(FOR HYPOALB) 8.9 mg/dL (8.5-10.1); COR NA(FOR HYPERGLY) 137 mmol/L (136-145); CREATININE 1.04 mg/dL (0.70-1.30); GLUCOSE 187 mg/dL (65-99); MAGNESIUM 2.3 mg/dL (2.0-2.9); POTASSIUM 4.5 mmol/L (3.5-5.1); SODIUM 135 mmol/L (136-145); TOTAL PROTEIN 6.1 g/dL (6.4-8.2); eGFR NON BLACK RACES > 60 (>60)
--- NOTE | 2023-04-28 07:18 | RAD ---
EXAM:AP chestHISTORY:RSV COPDCOMPARISON:April 27, 2023FINDINGS:There is persistent atelectasis noted in the right base, minimally improved. The heart and lungs are normal otherwise. There is no evidence for pneumonia or CHF or pleural fluid.IMPRESSION:Minimal persistent subsegmental atelectasis right lower lung.THIS IS AN ELECTRONICALLY VERIFIED FINAL [id number]/28/2023 7:14 AM - Electronically signed by Anton Myers MD
[2023-04-28 07:33] LABS: PLATELET MORPHOLOGY COMMENT NORMAL (NORMAL)
[2023-04-28] MEDS: DUONEB 0.5 MG/3 MG (3 mL) NEB SCH ×4 (08:21→20:45)
[2023-04-28] MEDS: BROVANA IN SCH ×2 (08:21→20:45)
[2023-04-28] MEDS: PULMICORT NEB TX 0.5 MG NEB SCH ×2 (08:21→20:45)
[2023-04-28] MEDS: LEVAQUIN PREMIX IV 750 MG 750 MG/150 ML BAG IV SCH (09:43)
[2023-04-28] MEDS: LOVENOX INJ 40 MG SYR SC SCH (09:43)
[2023-04-28] MEDS: SOLU-Medrol 40 MG VIAL IVP SCH ×2 (09:43→21:09)
[2023-04-28] MEDS: BENTYL CAP 10 MG PO SCH ×4 (09:44→21:08)
[2023-04-28] MEDS: MUCINEX EXPECTORANT PO SCH ×2 (09:44→21:17)
[2023-04-28] MEDS: PLAVIX PO SCH (09:44)
[2023-04-28] MEDS: ZANAFLEX PO SCH ×2 (09:44→21:08)
[2023-04-28] MEDS: MOBIC TAB 15 MG PO SCH (09:44)
[2023-04-28] MEDS: PriLOSEC PO SCH ×2 (09:45→21:08)
[2023-04-28] MEDS: LOTENSIN TAB 10 MG PO SCH (09:45)
[2023-04-28] MEDS: LIPITOR TAB 40 MG PO SCH (09:45)
[2023-04-28] MEDS: FLONASE NASAL SPRAY ENOSTRIL SCH (09:46)
[2023-04-28] MEDS ORDERED: NS 250 ML IV 250 ML IV ONE (09:58)
[2023-04-28] MEDS: TUSSIONEX PENNKINETIC SUSP PO SCH ×2 (10:01→21:07)
[2023-04-28 14:58] VITALS: BMI 27.7
[2023-04-28] MEDS: ROBITUSSIN DM PO PRN (21:18)
[2023-04-29 04:45] LABS: BASOPHILS % (AUTO) 0.3 % (0.2-1.0); HEMATOCRIT 45.2 % (42.0-54.0); LYMPHOCYTES # (AUTO) 1.6 X10^3/uL (1.3-2.9); LYMPHOCYTES % (AUTO) 9.6 % (21.0-51.0); MEAN CORPUSCULAR HEMOGLOBIN 31.7 pg (27.0-34.0); MEAN CORPUSCULAR HGB CONC 33.2 g/dL (33.0-35.0); MEAN CORPUSCULAR VOLUME 95.2 fL (80.0-100.0); MEAN PLATELET VOLUME 7.5 fL (7.4-11.0); MONOCYTES % (AUTO) 5.8 % (0.0-13.0); NEUTROPHILS # (AUTO) 14.2 x10^3/uL (2.2-4.8); NEUTROPHILS % (AUTO) 84.3 % (42.0-75.0); PLATELET COUNT 272 X10^3/uL (150.0-450.0); RED BLOOD COUNT 4.74 X10^6/uL (4.7-6.0); RED CELL DISTRIBUTION WIDTH 12.7 % (11.6-16.5); WHITE BLOOD COUNT 16.9 X10^3/uL (3.6-10.0)
[2023-04-29 05:04] LABS: ALANINE AMINOTRANSFERASE 45 Units/L (12-78); ALBUMIN 2.6 g/dL (3.4-5.0); ALKALINE PHOSPHATASE 54 Units/L (46-116); ASPARTATE AMINO TRANSFERASE 19 Units/L (15-37); BLOOD UREA NITROGEN 31 mg/dL (7-18); CALCIUM 7.6 mg/dL (8.5-10.1); CARBON DIOXIDE 28.7 mmol/L (21-32); CHLORIDE 102 mmol/L (98-107); COR CA(FOR HYPOALB) 8.7 mg/dL (8.5-10.1); COR NA(FOR HYPERGLY) 142 mmol/L (136-145); CREATININE 1.02 mg/dL (0.70-1.30); GLUCOSE 212 mg/dL (65-99); POTASSIUM 4.2 mmol/L (3.5-5.1); SODIUM 139 mmol/L (136-145); TOTAL PROTEIN 5.7 g/dL (6.4-8.2); eGFR NON BLACK RACES > 60 (>60)
[2023-04-29 05:40] LABS: BAND NEUTROPHILS % 7 % (0-10); METAMYELOCYTES % 1; MYELOCYTES % 2; PLATELET MORPHOLOGY COMMENT NORMAL (NORMAL)
[2023-04-29] MEDS: DUONEB 0.5 MG/3 MG (3 mL) NEB SCH ×4 (08:32→21:15)
[2023-04-29] MEDS: PULMICORT NEB TX 0.5 MG NEB SCH ×2 (08:32→21:15)
[2023-04-29] MEDS: BROVANA IN SCH ×2 (08:32→21:15)
[2023-04-29] MEDS: LOVENOX INJ 40 MG SYR SC SCH (09:28)
[2023-04-29] MEDS: LOTENSIN TAB 10 MG PO SCH (09:28)
[2023-04-29] MEDS: SOLU-Medrol 40 MG VIAL IVP SCH ×2 (09:28→21:06)
[2023-04-29] MEDS: LEVAQUIN PREMIX IV 750 MG 750 MG/150 ML BAG IV SCH (09:28)
[2023-04-29] MEDS: PriLOSEC PO SCH ×2 (09:29→21:05)
[2023-04-29] MEDS: BENTYL CAP 10 MG PO SCH ×4 (09:29→21:05)
[2023-04-29] MEDS: PLAVIX PO SCH (09:29)
[2023-04-29] MEDS: ZANAFLEX PO SCH ×2 (09:29→21:05)
[2023-04-29] MEDS: MUCINEX EXPECTORANT PO SCH ×2 (09:29→21:16)
[2023-04-29] MEDS: MOBIC TAB 15 MG PO SCH (09:29)
[2023-04-29] MEDS: TUSSIONEX PENNKINETIC SUSP PO SCH ×2 (09:30→21:04)
[2023-04-29] MEDS: LIPITOR TAB 40 MG PO SCH (09:30)
[2023-04-29] MEDS: FLONASE NASAL SPRAY ENOSTRIL SCH (09:30)
[2023-04-29 11:02] LABS: ABG HCO3 27.1 mmol/L (22-26)
[2023-04-29 11:03] LABS: ABG ALLEN TEST POS
[2023-04-29] MEDS: XANAX PO PRN (16:39)
[2023-04-29] MEDS: TYLENOL #3 TAB (W/CODEINE) PO PRN (16:40)
[2023-04-29] MEDS: ROBITUSSIN DM PO PRN (21:05)
[2023-04-30 06:15] LABS: BASOPHILS # (AUTO) 0.1 X10^3/uL (0.0-0.1); BASOPHILS % (AUTO) 0.4 % (0.2-1.0); HEMATOCRIT 43.4 % (42.0-54.0); HEMOGLOBIN 14.2 g/dL (13.5-18.0); LYMPHOCYTES # (AUTO) 2.2 X10^3/uL (1.3-2.9); LYMPHOCYTES % (AUTO) 11.6 % (21.0-51.0); MEAN CORPUSCULAR HEMOGLOBIN 31.3 pg (27.0-34.0); MEAN CORPUSCULAR HGB CONC 32.7 g/dL (33.0-35.0); MEAN CORPUSCULAR VOLUME 95.6 fL (80.0-100.0); MEAN PLATELET VOLUME 7.3 fL (7.4-11.0); MONOCYTES # (AUTO) 1.1 x10^3/uL (0.3-0.8); MONOCYTES % (AUTO) 5.8 % (0.0-13.0); NEUTROPHILS # (AUTO) 15.5 x10^3/uL (2.2-4.8); NEUTROPHILS % (AUTO) 82.2 % (42.0-75.0); PLATELET COUNT 259 X10^3/uL (150.0-450.0); RED BLOOD COUNT 4.54 X10^6/uL (4.7-6.0); RED CELL DISTRIBUTION WIDTH 12.4 % (11.6-16.5); WHITE BLOOD COUNT 18.8 X10^3/uL (3.6-10.0)
[2023-04-30 06:26] LABS: ALANINE AMINOTRANSFERASE 50 Units/L (12-78); ALBUMIN 2.5 g/dL (3.4-5.0); ALKALINE PHOSPHATASE 42 Units/L (46-116); ASPARTATE AMINO TRANSFERASE 15 Units/L (15-37); BLOOD UREA NITROGEN 35 mg/dL (7-18); CALCIUM 7.7 mg/dL (8.5-10.1); CARBON DIOXIDE 30.1 mmol/L (21-32); CHLORIDE 103 mmol/L (98-107); COR CA(FOR HYPOALB) 8.9 mg/dL (8.5-10.1); COR NA(FOR HYPERGLY) 140 mmol/L (136-145); CREATININE 1.02 mg/dL (0.70-1.30); GLUCOSE 197 mg/dL (65-99); POTASSIUM 4.6 mmol/L (3.5-5.1); SODIUM 138 mmol/L (136-145); TOTAL PROTEIN 5.4 g/dL (6.4-8.2); eGFR NON BLACK RACES > 60 (>60)
[2023-04-30 06:53] LABS: BAND NEUTROPHILS % 2 % (0-10)
[2023-04-30 06:55] LABS: PLATELET MORPHOLOGY COMMENT NORMAL (NORMAL)
[2023-04-30] MEDS: BROVANA IN SCH ×2 (08:53→20:05)
[2023-04-30] MEDS: PULMICORT NEB TX 0.5 MG NEB SCH ×2 (08:53→20:04)
[2023-04-30] MEDS: DUONEB 0.5 MG/3 MG (3 mL) NEB SCH ×4 (08:55→20:04)
[2023-04-30] MEDS ORDERED: INVanz INJ 1 GRAM VIAL 1 G in NS 100 ML IV 100 ML IV SCH (09:00)
[2023-04-30 09:24] LABS: BILIRUBIN,URINE NEGATIVE (NEGATIVE); BLOOD/HEMOGLOBIN,URINE NEGATIVE (NEGATIVE); GLUCOSE, URINE 4+ (NEGATIVE); KETONES,URINE NEGATIVE (NEGATIVE); LEUKOCYTE ESTERASE ,URINE NEGATIVE (NEGATIVE); NITRITES,URINE NEGATIVE (NEGATIVE); PROTEIN,URINE 1+ (NEGATIVE); UROBILINOGEN,URINE NORMAL (NORMAL)
[2023-04-30 09:26] LABS: APPEARANCE,URINE CLEAR (CLEAR); COLOR,URINE YELLOW (YELLOW)
[2023-04-30] MEDS: SOLU-Medrol 40 MG VIAL IVP SCH ×2 (09:27→21:08)
[2023-04-30] MEDS: BENTYL CAP 10 MG PO SCH ×4 (09:28→21:07)
[2023-04-30] MEDS: LOTENSIN TAB 10 MG PO SCH (09:29)
[2023-04-30] MEDS: MOBIC TAB 15 MG PO SCH (09:29)
[2023-04-30] MEDS: ZANAFLEX PO SCH ×2 (09:30→21:07)
[2023-04-30] MEDS: PriLOSEC PO SCH ×2 (09:30→21:08)
[2023-04-30] MEDS: LIPITOR TAB 40 MG PO SCH (09:31)
[2023-04-30] MEDS: PLAVIX PO SCH (09:31)
[2023-04-30] MEDS: TUSSIONEX PENNKINETIC SUSP PO SCH ×2 (09:32→21:08)
[2023-04-30] MEDS: MUCINEX EXPECTORANT PO SCH ×2 (09:32→21:08)
[2023-04-30] MEDS: LOVENOX INJ 40 MG SYR SC SCH (09:33)
[2023-04-30] MEDS: LEVAQUIN PREMIX IV 750 MG 750 MG/150 ML BAG IV SCH (09:33)
[2023-04-30 09:42] LABS: BACTERIA,URINE NEGATIVE /HPF (NEGATIVE); RBC,URINE NONE SEEN /HPF (0-3); SQUAMOUS EPITHELIAL CELL,UR RARE /HPF (NEGATIVE)
[2023-04-30] MEDS: FLONASE NASAL SPRAY ENOSTRIL SCH (09:54)
[2023-04-30] MEDS: INVanz INJ 1 GRAM VIAL 1 G in NS 100 ML IV 100 ML IV SCH ×2 (13:37→14:22)
--- NOTE | 2023-04-30 18:29 | RAD ---
EXAM:CHEST, 1 VIEWHISTORY:SOB, RSV; HTN, COPD.APPY UnavailableCOMPARISON:April 28, 2023FINDINGS:The trachea is midline. The cardiac silhouette is unremarkable. The lungs are clear without focal infiltrate or effusion. The bony thorax is unremarkable.IMPRESSION:No acute cardiopulmonary disease.THIS IS AN ELECTRONICALLY VERIFIED FINAL [id number]/30/2023 6:26 PM - Electronically signed by Hansel Hernandez MD
--- NOTE | 2023-04-30 20:47 | PCM.PROG ---
Progress Note Progress Note for Day of Date of Exam: 04/30/23 Subjective Subjective: The patient is feeling better over the last 3 days and feels like he is breathing better every day now. I would discharge him home today however he has developed an even larger leukocytosis of 18,800 today. He has slowly been trending up over the last 4 to 5 days despite being on IV Levaquin 750 mg daily. I repeated a urinalysis and chest x-ray on him today and they are both clear. I also ordered blood cultures x2 to make sure were not missing any sepsis. I will go ahead and add IV ertapenem 1 g IV daily for broad-spectrum coverage. If the patient continues to do better tomorrow if his white count is improving we will plan on discharging him home. We will also recheck a sputum culture and sputum AIT panel and send it off. He does still have a fair amount of coughing and he does get somewhat dyspneic when he is coughing. Past Medical Family Social History Allergies: Allergies No Known Allergies Allergy (Verified 04/21/23 20:33) Review of Systems ROS: No change since H&P Vital Signs and I&O's Vital Signs: Vital Signs Temperature 98.1 F Pulse Rate [Right] 90 Pulse Rate 95 Respiratory Rate 20 Blood Pressure [Right Arm] 134/71 O2 Sat by Pulse Oximetry 88 O2 Sat by Pulse Oximetry 96 Intake and Output: Intake & Output 04/28/23 04/29/23 04/30/23 05/01/23 11:59 11:59 11:59 11:59 Intake Total 3600 / 3600 2944 / 2944 2043 / 4 1099 / 1099 Balance 3600 / 3600 2944 / 2944 2043 1099 / 1099 Physical Exam Oriented: Normal, Time, Person and Place Eyes: Normal Ear: Normal Nose: Injected and Discharge Throat: Normal Respiratory: Generalized and Diminished Cardiovascular: Normal : Normal Auscultation: Bowel Sounds: Normal Tenderness: Normal Skin: Normal Musculoskeletal: Normal Psychiatric: Normal Mood Description: Labile Affect: Normal Speech Pattern: Clear and Appropriate Laboratory and Diagnostics 04/30/23 05:40 04/30/23 05:40 Labs: 04/30/23 09:03 Sputum - Expectorated Sputum - Final Laboratory WBC 18.8 X10^3/uL (3.6-10.0) H 04/30/23 05:40 RBC 4.54 X10^6/uL (4.7-6.0) L 04/30/23 05:40 Hgb 14.2 g/dL (13.5-18.0) 04/30/23 05:40 Hct 43.4 % (42.0-54.0) 04/30/23 05:40 MCV 95.6 fL (80.0-100.0) 04/30/23 05:40 MCH 31.3 pg (27.0-34.0) 04/30/23 05:40 MCHC 32.7 g/dL (33.0-35.0) L 04/30/23 05:40 RDW 12.4 % (11.6-16.5) 04/30/23 05:40 Plt Count 259 X10^3/uL (150.0-450.0) 04/30/23 05:40 Plt Count Comment Adequate (ADEQUATE) 04/30/23 05:40 MPV 7.3 fL (7.4-11.0) L 04/30/23 05:40 Neut % (Auto) 82.2 % (42.0-75.0) H 04/30/23 05:40 Lymph % (Auto) 11.6 % (21.0-51.0) L 04/30/23 05:40 [place] % (Auto) 5.8 % (0.0-13.0) 04/30/23 05:40 Eos % (Auto) 0.0 % (0.9-2.9) L 04/30/23 05:40 Baso % (Auto) 0.4 % (0.2-1.0) 04/30/23 05:40 Neut # (Auto) 15.5 x10^3/uL (2.2-4.8) H 04/30/23 05:40 Lymph # (Auto) 2.2 X10^3/uL (1.3-2.9) 04/30/23 05:40 [place] # (Auto) 1.1 x10^3/uL (0.3-0.8) H 04/30/23 05:40 Eos # (Auto) 0.0 x10^3/uL (0.0-0.2) 04/30/23 05:40 Baso # (Auto) 0.1 X10^3/uL (0.0-0.1) 04/30/23 05:40 Absolute Nucleated RBC 0.1 /100WBC 04/30/23 05:40 Total Counted 100 04/30/23 05:40 Neutrophils % (Manual) 71 % (39-76) 04/30/23 05:40 Band Neutrophils % 2 % (0-10) 04/30/23 05:40 Lymphocytes % (Manual) 17 % (13-43) 04/30/23 05:40 Monocytes % (Manual) 10 % (4-9) H 04/30/23 05:40 Eosinophils % (Manual) 0 % (0-6) 04/27/23 05:35 Basophils % (Manual) 0 % (0-1) 04/27/23 05:35 Metamyelocytes % 1 04/29/23 04:04 Myelocytes % 2 04/29/23 04:04 Plt Morphology Comment Normal (NORMAL) 04/30/23 05:40 RBC Morphology Normal (NORMAL) 04/30/23 05:40 Sample Site Rr 04/29/23 10:58 ABG pH 7.450 (7.35-7.45) 04/29/23 10:58 ABG pCO2 39.0 mmHg (35.0-45.0) 04/29/23 10:58 ABG pO2 57.0 mmHg (80.0-100.0) L 04/29/23 10:58 ABG HCO3 27.1 mmol/L (22-26) H 04/29/23 10:58 ABG O2 Saturation 91.0 % (90-100) 04/29/23 10:58 ABG Base Excess 3.0 mmol/L (-2.0-2.0) H 04/29/23 10:58 Ky Test Pos 04/29/23 10:58 A-a Gradient 44.0 mmHg 04/29/23 10:58 FiO2 21.0 04/29/23 10:58 Blood Gas Comments Pt jeff well cdn 04/29/23 10:58 Sodium 138 mmol/L (136-145) 04/30/23 05:40 Corrected Sodium 140 mmol/L (136-145) 04/30/23 05:40 Potassium 4.6 mmol/L (3.5-5.1) 04/30/23 05:40 Chloride 103 mmol/L (98-107) 04/30/23 05:40 Carbon Dioxide 30.1 mmol/L (21-32) 04/30/23 05:40 BUN 35 mg/dL (7-18) H 04/30/23 05:40 Creatinine 1.02 mg/dL (0.70-1.30) 04/30/23 05:40 Est GFR (MDRD) Af Amer > 60 (>60) 04/30/23 05:40 Est GFR (MDRD) Non-Af > 60 (>60) 04/30/23 05:40 Glucose 197 mg/dL (65-99) H 04/30/23 05:40 Calcium 7.7 mg/dL (8.5-10.1) L 04/30/23 05:40 Corrected Calcium 8.9 mg/dL (8.5-10.1) 04/30/23 05:40 Magnesium 2.3 mg/dL (2.0-2.9) 04/28/23 05:55 Total Bilirubin 0.50 mg/dL (0.2-1.0) 04/30/23 05:40 AST 15 Units/L (15-37) 04/30/23 05:40 ALT 50 Units/L (12-78) 04/30/23 05:40 Alkaline Phosphatase 42 Units/L (46-116) L 04/30/23 05:40 Creatine Kinase 282 Units/L (39-308) 04/21/23 20:30 Troponin I High Sens 4.8 ng/L (4.0-60.0) 04/21/23 20:30 B-Natriuretic Peptide 7.6 pg/mL (0-79) 04/21/23 20:30 Total Protein 5.4 g/dL (6.4-8.2) L 04/30/23 05:40 Albumin 2.5 g/dL (3.4-5.0) L 04/30/23 05:40 Globulin 2.9 g/dL (2.5-4.5) 04/30/23 05:40 Albumin/Globulin Ratio 0.9 Ratio (1.1-2.1) L 04/30/23 05:40 Specimen Type Random urine 04/30/23 09:00 Urine Color Yellow (YELLOW) 04/30/23 09:00 Urine Appearance Clear (CLEAR) 04/30/23 09:00 Urine pH 6.0 (5.0 - 8.0) 04/30/23 09:00 Ur Specific [place] 1.020 (1.000-1.030) 04/30/23 09:00 Urine Protein 1+ (NEGATIVE) 04/30/23 09:00 Urine Glucose (UA) 4+ (NEGATIVE) 04/30/23 09:00 Urine Ketones Negative (NEGATIVE) 04/30/23 09:00 Urine Blood Negative (NEGATIVE) 04/30/23 09:00 Urine Nitrite Negative (NEGATIVE) 04/30/23 09:00 Urine Bilirubin Negative (NEGATIVE) 04/30/23 09:00 Urine Urobilinogen Normal (NORMAL) 04/30/23 09:00 Ur Leukocyte Esterase Negative (NEGATIVE) 04/30/23 09:00 Urine RBC None seen /HPF (0-3) 04/30/23 09:00 Urine WBC None seen /HPF (0-5) 04/30/23 09:00 Ur Squamous Epith Cells Rare /HPF (NEGATIVE) 04/30/23 09:00 Urine Bacteria Negative /HPF (NEGATIVE) 04/30/23 09:00 Ur Culture Indicated? No/not indicated 04/30/23 09:00 SARS-CoV-2 (PCR) Negative (NEGATIVE) 04/21/23 20:20 Influenza Type A (PCR) Negative (NEGATIVE) 04/21/23 20:20 Influenza Type B (PCR) Negative (NEGATIVE) 04/21/23 20:20 RSV (PCR) Positive (NEGATIVE) A 04/21/23 20:20 Resp Viral Panel (PCR) See scanned report 04/21/23 23:55 Plan (1) COPD (chronic obstructive pulmonary disease): Status: Acute Qualifiers: COPD type: unspecified COPD Qualified Code(s): J44.9 - Chronic obstructive pulmonary disease, unspecified Plan: DuoNebs, IV Solu-Medrol, Rocephin, Add IV azithromycin. (2) Bronchitis: Status: Acute (3) Chest pain: Status: Acute Qualifiers: Chest pain type: unspecified Qualified Code(s): R07.9 - Chest pain, unspecified (4) RSV (respiratory syncytial virus infection): Status: Acute Plan: IV Solu-Medrol, DuoNebs, add inhaled budesonide and formoterol today. Continue IV Levaquin (5) Acute exacerbation of chronic obstructive pulmonary disease: Status: Acute (6) Dyspnea: Status: Acute Plan: Add Mucinex. Consult respiratory therapy. (7) Hypertension: Status: Acute (8) Acute bronchitis due to Streptococcus pneumoniae: Status: Acute Plan: Discontinue IV Rocephin and azithromycin. Start IV Levaquin. (9) Leukocytosis, unspecified: Status: Acute Plan: Check urinalysis, chest x-ray which were both clear. I also checked another sputum culture as well as a sputum AIT panel. I also added Invanz 1 g IV daily for broad-spectrum antibiotic coverage. Recheck CBC in the a.m.
[2023-05-01 05:37] LABS: BASOPHILS % (AUTO) 0.1 % (0.2-1.0); HEMATOCRIT 43.8 % (42.0-54.0); HEMOGLOBIN 14.4 g/dL (13.5-18.0); LYMPHOCYTES # (AUTO) 1.7 X10^3/uL (1.3-2.9); LYMPHOCYTES % (AUTO) 10.3 % (21.0-51.0); MEAN CORPUSCULAR HEMOGLOBIN 31.2 pg (27.0-34.0); MEAN CORPUSCULAR VOLUME 94.8 fL (80.0-100.0); MEAN PLATELET VOLUME 7.4 fL (7.4-11.0); MONOCYTES # (AUTO) 0.9 x10^3/uL (0.3-0.8); MONOCYTES % (AUTO) 5.2 % (0.0-13.0); NEUTROPHILS # (AUTO) 14.2 x10^3/uL (2.2-4.8); NEUTROPHILS % (AUTO) 84.4 % (42.0-75.0); PLATELET COUNT 248 X10^3/uL (150.0-450.0); RED BLOOD COUNT 4.62 X10^6/uL (4.7-6.0); RED CELL DISTRIBUTION WIDTH 12.7 % (11.6-16.5); WHITE BLOOD COUNT 16.8 X10^3/uL (3.6-10.0)
[2023-05-01 05:43] LABS: ALANINE AMINOTRANSFERASE 54 Units/L (12-78); ALBUMIN 2.4 g/dL (3.4-5.0); ALKALINE PHOSPHATASE 44 Units/L (46-116); ASPARTATE AMINO TRANSFERASE 15 Units/L (15-37); BLOOD UREA NITROGEN 36 mg/dL (7-18); CALCIUM 7.8 mg/dL (8.5-10.1); CHLORIDE 103 mmol/L (98-107); COR CA(FOR HYPOALB) 9.1 mg/dL (8.5-10.1); COR NA(FOR HYPERGLY) 141 mmol/L (136-145); CREATININE 1.06 mg/dL (0.70-1.30); GLUCOSE 198 mg/dL (65-99); MAGNESIUM 2.2 mg/dL (2.0-2.9); SODIUM 139 mmol/L (136-145); TOTAL PROTEIN 5.4 g/dL (6.4-8.2); eGFR NON BLACK RACES > 60 (>60)
[2023-05-01 05:52] LABS: BAND NEUTROPHILS % 1 % (0-10); PLATELET MORPHOLOGY COMMENT NORMAL (NORMAL)
[2023-05-01 08:46] VITALS: BP 129/73; RESP 20; TEMP 98; O2SAT 96
[2023-05-01] MEDS: PULMICORT NEB TX 0.5 MG NEB SCH (09:11)
[2023-05-01] MEDS: BROVANA IN SCH (09:11)
[2023-05-01] MEDS: DUONEB 0.5 MG/3 MG (3 mL) NEB SCH (09:11)
[2023-05-01 09:13] VITALS: PULSE 68
[2023-05-01] MEDS: LOTENSIN TAB 10 MG PO SCH (09:33)
[2023-05-01] MEDS: LIPITOR TAB 40 MG PO SCH (09:33)
[2023-05-01] MEDS: MOBIC TAB 15 MG PO SCH (09:33)
[2023-05-01] MEDS: BENTYL CAP 10 MG PO SCH ×2 (09:33→13:15)
[2023-05-01] MEDS: ZANAFLEX PO SCH (09:34)
[2023-05-01] MEDS: PLAVIX PO SCH (09:34)
[2023-05-01] MEDS: PriLOSEC PO SCH (09:35)
[2023-05-01] MEDS: MUCINEX EXPECTORANT PO SCH (09:35)
[2023-05-01] MEDS: TUSSIONEX PENNKINETIC SUSP PO SCH (09:38)
[2023-05-01] MEDS: SOLU-Medrol 40 MG VIAL IVP SCH (09:39)
[2023-05-01] MEDS: LEVAQUIN PREMIX IV 750 MG 750 MG/150 ML BAG IV SCH (09:39)
[2023-05-01] MEDS: LOVENOX INJ 40 MG SYR SC SCH (09:39)
[2023-05-01] MEDS: FLONASE NASAL SPRAY ENOSTRIL SCH (09:47)
[2023-05-01] MEDS: INVanz INJ 1 GRAM VIAL 1 G in NS 100 ML IV 100 ML IV SCH (13:27)
--- NOTE | 2023-05-02 09:05 | PCM.DCPLAN ---
DISCHARGE SUMMARY Admission Date Date of Admission: 04/21/23 Discharge Date Discharge Date: 05/01/23 Admission Diagnoses (1) COPD (chronic obstructive pulmonary disease): Status: Acute (2) Bronchitis: Status: Acute (3) Chest pain: Status: Acute (4) RSV (respiratory syncytial virus infection): Status: Acute (5) Acute exacerbation of chronic obstructive pulmonary disease: Status: Acute (6) Dyspnea: Status: Acute (7) Hypertension: Status: Acute (8) Acute bronchitis due to Streptococcus pneumoniae: Status: Acute (9) Leukocytosis, unspecified: Status: Acute Discharge Diagnoses Discharge Diagnosis: 1. RSV bronchitis 2. Streptococcus pneumoniae bronchitis 3. Klebsiella pneumoniae/oxytoca bronchitis 4. Acute exacerbation COPD 5. Hypertension stable 6. Leukocytosis 7. Hyperlipidemia 8. Anxiety Discharge Medications Discharge Medications: Home Medication List acetaminophen 300 mg-codeine 60 mg tablet 1 tab PO QID PRN 04/21/23 [History] alprazolam 0.5 mg tablet 0.5 mg PO BID PRN 04/21/23 [History] atorvastatin 40 mg tablet 40 mg PO QDAY 04/21/23 [History] benazepril 5 mg tablet 5 mg PO QDAY 04/21/23 [History] clopidogrel 75 mg tablet 75 mg PO QDAY 04/21/23 [History] dicyclomine 20 mg tablet 20 mg PO QID 04/21/23 [History] meloxicam 15 mg tablet 15 mg PO QDAY 04/21/23 [History] omeprazole 20 mg capsule,delayed release 20 mg PO BID 04/21/23 [History] temazepam 30 mg capsule 30 mg PO QPM PRN 04/21/23 [History] tizanidine 4 mg tablet 4 mg PO BID 04/21/23 [History] budesonide-formoterol HFA 160 mcg-4.5 mcg/actuation aerosol inhaler (Symbicort) 1 inh inhalation DAILY #1 g 05/01/23 [Rx] cefpodoxime 200 mg tablet 200 mg PO Q12H #14 tabs 05/01/23 [Rx] levofloxacin 750 mg tablet 750 mg PO Q24H #7 tabs 05/01/23 [Rx] prednisone 10 mg tablets in a dose pack 10 mg PO DIRECTED #48 ea 05/01/23 [Rx] Prescriptions: budesonide-formoterol [Symbicort] JENNI PRITCHARD cefpodoxime MACHO,JENNI levofloxacin MACHO,JENNI prednisone MACHO,JENNI Hospital Course Latest Lab Results: Laboratory Last Values WBC 16.8 X10^3/uL (3.6-10.0) H 05/01/23 04:26 RBC 4.62 X10^6/uL (4.7-6.0) L 05/01/23 04:26 Hgb 14.4 g/dL (13.5-18.0) 05/01/23 04:26 Hct 43.8 % (42.0-54.0) 05/01/23 04:26 MCV 94.8 fL (80.0-100.0) 05/01/23 04:26 MCH 31.2 pg (27.0-34.0) 05/01/23 04:26 MCHC 33.0 g/dL (33.0-35.0) 05/01/23 04:26 RDW 12.7 % (11.6-16.5) 05/01/23 04:26 Plt Count 248 X10^3/uL (150.0-450.0) 05/01/23 04:26 Plt Count Comment Adequate (ADEQUATE) 05/01/23 04:26 MPV 7.4 fL (7.4-11.0) 05/01/23 04:26 Neut % (Auto) 84.4 % (42.0-75.0) H 05/01/23 04:26 Lymph % (Auto) 10.3 % (21.0-51.0) L 05/01/23 04:26 [place] % (Auto) 5.2 % (0.0-13.0) 05/01/23 04:26 Eos % (Auto) 0.0 % (0.9-2.9) L 05/01/23 04:26 Baso % (Auto) 0.1 % (0.2-1.0) L 05/01/23 04:26 Neut # (Auto) 14.2 x10^3/uL (2.2-4.8) H 05/01/23 04:26 Lymph # (Auto) 1.7 X10^3/uL (1.3-2.9) 05/01/23 04:26 [place] # (Auto) 0.9 x10^3/uL (0.3-0.8) H 05/01/23 04:26 Eos # (Auto) 0.0 x10^3/uL (0.0-0.2) 05/01/23 04:26 Baso # (Auto) 0.0 X10^3/uL (0.0-0.1) 05/01/23 04:26 Absolute Nucleated RBC 0.1 /100WBC 05/01/23 04:26 Total Counted 100 05/01/23 04:26 Neutrophils % (Manual) 85 % (39-76) H 05/01/23 04:26 Band Neutrophils % 1 % (0-10) 05/01/23 04:26 Lymphocytes % (Manual) 10 % (13-43) L 05/01/23 04:26 Monocytes % (Manual) 4 % (4-9) 05/01/23 04:26 Eosinophils % (Manual) 0 % (0-6) 04/27/23 05:35 Basophils % (Manual) 0 % (0-1) 04/27/23 05:35 Metamyelocytes % 1 04/29/23 04:04 Myelocytes % 2 04/29/23 04:04 Plt Morphology Comment Normal (NORMAL) 05/01/23 04:26 RBC Morphology Normal (NORMAL) 05/01/23 04:26 Sample Site Rr 04/29/23 10:58 ABG pH 7.450 (7.35-7.45) 04/29/23 10:58 ABG pCO2 39.0 mmHg (35.0-45.0) 04/29/23 10:58 ABG pO2 57.0 mmHg (80.0-100.0) L 04/29/23 10:58 ABG HCO3 27.1 mmol/L (22-26) H 04/29/23 10:58 ABG O2 Saturation 91.0 % (90-100) 04/29/23 10:58 ABG Base Excess 3.0 mmol/L (-2.0-2.0) H 04/29/23 10:58 Ky Test Pos 04/29/23 10:58 A-a Gradient 44.0 mmHg 04/29/23 10:58 FiO2 21.0 04/29/23 10:58 Blood Gas Comments Pt jeff well cdn 04/29/23 10:58 Sodium 139 mmol/L (136-145) 05/01/23 04:26 Corrected Sodium 141 mmol/L (136-145) 05/01/23 04:26 Potassium 5.0 mmol/L (3.5-5.1) 05/01/23 04:26 Chloride 103 mmol/L (98-107) 05/01/23 04:26 Carbon Dioxide 30.0 mmol/L (21-32) 05/01/23 04:26 BUN 36 mg/dL (7-18) H 05/01/23 04:26 Creatinine 1.06 mg/dL (0.70-1.30) 05/01/23 04:26 Est GFR (MDRD) Af Amer > 60 (>60) 05/01/23 04:26 Est GFR (MDRD) Non-Af > 60 (>60) 05/01/23 04:26 Glucose 198 mg/dL (65-99) H 05/01/23 04:26 Calcium 7.8 mg/dL (8.5-10.1) L 05/01/23 04:26 Corrected Calcium 9.1 mg/dL (8.5-10.1) 05/01/23 04:26 Magnesium 2.2 mg/dL (2.0-2.9) 05/01/23 04:26 Total Bilirubin 0.40 mg/dL (0.2-1.0) 05/01/23 04:26 AST 15 Units/L (15-37) 05/01/23 04:26 ALT 54 Units/L (12-78) 05/01/23 04:26 Alkaline Phosphatase 44 Units/L (46-116) L 05/01/23 04:26 Creatine Kinase 282 Units/L (39-308) 04/21/23 20:30 Troponin I High Sens 4.8 ng/L (4.0-60.0) 04/21/23 20:30 B-Natriuretic Peptide 7.6 pg/mL (0-79) 04/21/23 20:30 Total Protein 5.4 g/dL (6.4-8.2) L 05/01/23 04:26 Albumin 2.4 g/dL (3.4-5.0) L 05/01/23 04:26 Globulin 3.0 g/dL (2.5-4.5) 05/01/23 04:26 Albumin/Globulin Ratio 0.8 Ratio (1.1-2.1) L 05/01/23 04:26 Specimen Type Random urine 04/30/23 09:00 Urine Color Yellow (YELLOW) 04/30/23 09:00 Urine Appearance Clear (CLEAR) 04/30/23 09:00 Urine pH 6.0 (5.0 - 8.0) 04/30/23 09:00 Ur Specific [place] 1.020 (1.000-1.030) 04/30/23 09:00 Urine Protein 1+ (NEGATIVE) 04/30/23 09:00 Urine Glucose (UA) 4+ (NEGATIVE) 04/30/23 09:00 Urine Ketones Negative (NEGATIVE) 04/30/23 09:00 Urine Blood Negative (NEGATIVE) 04/30/23 09:00 Urine Nitrite Negative (NEGATIVE) 04/30/23 09:00 Urine Bilirubin Negative (NEGATIVE) 04/30/23 09:00 Urine Urobilinogen Normal (NORMAL) 04/30/23 09:00 Ur Leukocyte Esterase Negative (NEGATIVE) 04/30/23 09:00 Urine RBC None seen /HPF (0-3) 04/30/23 09:00 Urine WBC None seen /HPF (0-5) 04/30/23 09:00 Ur Squamous Epith Cells Rare /HPF (NEGATIVE) 04/30/23 09:00 Urine Bacteria Negative /HPF (NEGATIVE) 04/30/23 09:00 Ur Culture Indicated? No/not indicated 04/30/23 09:00 SARS-CoV-2 (PCR) Negative (NEGATIVE) 04/21/23 20:20 Influenza Type A (PCR) Negative (NEGATIVE) 04/21/23 20:20 Influenza Type B (PCR) Negative (NEGATIVE) 04/21/23 20:20 RSV (PCR) Positive (NEGATIVE) A 04/21/23 20:20 Resp Viral Panel (PCR) See scanned report 04/30/23 08:40 Hospital Course: This is a pleasant 62-year-old white male well-known to me. The patient kept falling last night because he kept getting very short of breath and giving out completely. He fell 3 times last night because it gave completely out. Because of this, he called EMS, and they came to pick him up and brought him to the hospital. He tested positive for RSV, and subsequently, they admitted him to the hospital. He was hypoxic, and once they put him on oxygen his O2 sat came up in the upper 90s. He had been around family members who had been sick with RSV and he has been sick for the last couple of days according to what he said. His symptoms came on very fast and rapidly progressed over the last 48 hours. The patient ended up staying approximately 10 days here at [facility]. It was slow going to get him better. After he was admitted he was given IV antibiotics and steroids but he was slowly responding to them. Within a couple days with had respiratory therapy to see him and started him on Mucomyst and few days later on inhaled budesonide with formoterol. He will get better over few days and seem to get a little worse however about the eighth day he started getting better but then he started developing a profound leukocytosis. We did another AIT sputum culture and this time he grew out Klebsiella pneumoniae and oxytoca with Streptococcus pneumoniae again which had previously been cultured on a AIT sputum culture when he initially came to hospital. Previous AIT culture grew out Streptococcus pneumoniae only. They are sensitive to Levaquin and cefpodoxime. By the ninth and 10th day the patient was breathing much easier and not having any expiratory wheezing and no significant rhonchi. We did have to get him a portable oxygen as he was satting in the low 90s without it. Will be discharging the patient today in stable condition and we will be discharging him on antibiotics with Levaquin 750 mg daily for 1 week, cefpodoxime 200 mg p.o. twice daily for a week, Symbicort 160/4.51 puff twice daily and Sterapred double strength taper pack. He may resume his regular home medications as before. He wants to government gauger to me as his primary care doctor so I will have him follow-up with me within 10 days and see how he is doing at that time. If he has any trouble prior to that he is to call my office so I can get him in sooner. If I am not available he is told to go to the closest emergency department for further evaluation and treatment. The patient understands this.
== END 2023-05-01 13:30 | disposition home or self-care (01) | DRG 202 ==
LOC: MED/SURG 20:10 → ER 20:10 → MED/SURG 23:13
PROVIDERS: ADMIT Family Medicine; ATTEND Family Medicine
DX: E78.5 Hyperlipidemia, unspecified; R07.89 Other chest pain; J44.0 Chronic obstructive pulmonary disease with (acute) lower respiratory infection; J20.5 Acute bronchitis due to respiratory syncytial virus; J44.1 Chronic obstructive pulmonary disease with (acute) exacerbation; E11.65 Type 2 diabetes mellitus with hyperglycemia; B96.1 Klebsiella pneumoniae [K. pneumoniae] as the cause of diseases classified elsewhere; F41.8 Other specified anxiety disorders; W18.39XA Other fall on same level, initial encounter; R06.02 Shortness of breath; J20.2 Acute bronchitis due to streptococcus; I10 Essential (primary) hypertension